=== PATIENT | male | born 1950 | race Caucasian/White ===

== ENCOUNTER → 2018-04-06 08:50 | Outpatient (REF) | payer BC, SELFPAY ==
[2018-04-06 09:10] LABS: C-Reactive Protein Quant < 0.5 mg/dL (<1.0)
[2018-04-06 09:18] LABS: Erythrocyte Sedimentation Rate 4 MM/HR (0-15)
== END ==
LOC: LAB 08:50
PROVIDERS: Visit Provider Internal Medicine Rheumatology
DX: M05.79 Rheumatoid arthritis with rheumatoid factor of multiple sites without organ or systems involvement (principal)
CPT/HCPCS: 85651; 86140

== ENCOUNTER → 2018-05-23 16:34 | Outpatient (CLI) | payer BC, SELFPAY ==
[2018-05-23 17:08] LABS: Influenza A and B by PCR Rapid Negative (Negative)
== END ==
PROVIDERS: Visit Provider Physician Assistant
DX: R68.89 Other general symptoms and signs (principal)
CPT/HCPCS: 87400

== ENCOUNTER → 2018-06-29 09:23 | Outpatient (CLI) | payer BC, SELFPAY ==
--- NOTE | 2018-06-29 | DI.MRI.S_ITS ---
PROCEDURE: MR BRAIN (IAC) WWO CON INDICATIONS: DIZZINESS TECHNIQUE: Noncontrast sagittal T1 spin echo, axial FLAIR, axial gradient echo, axial diffusion and ADC through the brain. Axial thin-slice 3D CISS, coronal TruFISP, axial T1 spin echo with fat saturation through the internal auditory canals. After the administration of contrast, thin slice axial and coronal T1 spin echo with fat saturation through the internal auditory canals, and axial T1 spin echo with fat saturation through the brain. COMPARISON: None. FINDINGS: Image quality: Excellent. Cerebellopontine angles: No cerebellopontine angle masses. Inner ear structures appear normally formed. No suspicious enhancement in the internal auditory canal or along the course of the 7th cranial nerve. CSF spaces: Ventricles are normal in size and shape. No extra-axial fluid collections. Basal cisterns are patent. Brain: No intracranial bleeds or mass effects. Clark-white matter interface is intact. No abnormal intracranial enhancement. Scattered foci of T2 hyperintensity can be seen within the periventricular and the deep white matter. Brain parenchymal volume loss is noted. Diffusion weighted images demonstrate no acute ischemic insults. Brainstem appears normal. Normal intravascular flow voids are present. Skull and face: Calvarial marrow signal is normal. Orbits appear normal. Sinuses: Sinuses and mastoids are clear. IMPRESSION: No significant abnormality is seen. Specifically, no masses or abnormal enhancement are seen within the cerebellopontine angle cisterns or within the internal auditory canals. Dictated by: Star Alvarez M.D. on 06/29/2018 at 9:22 Approved by: Star Alvarez M.D. on 06/29/2018 at 9:23
== END ==
PROVIDERS: Visit Provider Otolaryngology Facial Plastic Surgery
DX: R42 Dizziness and giddiness (principal)
CPT/HCPCS: 70553

== ENCOUNTER → 2019-07-31 10:54 | Outpatient (CLI) | payer BC, SELFPAY ==
[2019-07-31 12:08] LABS: Cholesterol 190 mg/dL (140-199); HDL Cholesterol 50 mg/dL (40-60); LDL Cholesterol Calculated 105 mg/dL (<100); Triglycerides 175 mg/dL (35-150)
== END ==
PROVIDERS: PCP Internal Medicine; Referring Provider Internal Medicine; Visit Provider Internal Medicine
DX: E78.5 Hyperlipidemia, unspecified (principal)
CPT/HCPCS: 36415; 80061

== ENCOUNTER → 2019-08-20 10:53 | Outpatient (CLI) | payer MEDICARE, BC, SELFPAY ==
[2019-08-21 12:08] LABS: SARS CoV19 IgG Negative (Negative)
== END ==
PROVIDERS: PCP Internal Medicine; Referring Provider Internal Medicine; Visit Provider Internal Medicine
DX: Z03.818 Encounter for observation for suspected exposure to other biological agents ruled out (principal)
CPT/HCPCS: 36415; 86769

== ENCOUNTER → 2020-04-04 07:34 | Outpatient (CLI) | payer MEDICARE, OTHER, SELFPAY ==
[2020-04-04] MEDS: COVID-19 VACC #1, MRNA(MOD) 100 MCG/0.5 ML VIAL IM (07:46)
== END ==
PROVIDERS: PCP Internal Medicine; Visit Provider Internal Medicine
DX: Z23 Encounter for immunization (principal)
CPT/HCPCS: 0011A; 91301

== ENCOUNTER → 2020-05-02 07:35 | Outpatient (CLI) | payer MEDICARE, OTHER, SELFPAY ==
[2020-05-02] MEDS: COVID-19 VACC #2, MRNA(MOD) 100 MCG/0.5 ML VIAL IM (07:40)
== END ==
PROVIDERS: PCP Internal Medicine; Visit Provider Internal Medicine
DX: Z23 Encounter for immunization (principal)
CPT/HCPCS: 0012A; 91301

== ENCOUNTER → 2020-05-08 09:04 | Outpatient (CLI) | payer MEDICARE, OTHER, SELFPAY ==
[2020-05-08 10:07] LABS: Add Manual Diff / Slide Review NO; Basophils Absolute Auto 0 /uL (0-100); Eosinophils Absolute Auto 0 /uL (0-450); Hematocrit 44.4 % (41-53); Hemoglobin 15.1 g/dL (13.5-17.5); Lymphocytes Absolute Auto 900 /uL (1100-4500); Lymphocytes Percent Auto 5.6 % (25-40); Mean Corpuscular HGB Conc 33.9 % (30-36); Mean Corpuscular Hemoglobin 32.4 PG (26-34); Mean Corpuscular Volume 95.4 fL (80-100); Monocytes Absolute Auto 500 /uL (0-900); Monocytes Percent Auto 3.4 % (3-14); Neutrophils Absolute Auto 14700 /uL (1500-7000); Platelet Count 168 X10^3/uL (150-400); Red Blood Cell Count 4.65 X10^6/uL (4.5-5.9); Red Cell Distribution Width 16.1 % (11.6-14.8); White Blood Cell Count 16.2 X10^3/uL (4.5-11.0)
[2020-05-08 10:17] LABS: Alanine Aminotransferase 39 IU/L (<50); Albumin 4.1 g/dL (3.5-5.0); Albumin Globulin Ratio 1.4 (1.0-2.8); Alkaline Phosphatase 61 U/L (38-126); Aspartate Aminotransferase 33 IU/L (17-59); BUN Creatinine Ratio 31.2 (6-22); Bilirubin Total 0.6 mg/dL (0.2-1.3); Blood Urea Nitrogen 29 mg/dL (9-20); Calcium 10.2 mg/dL (8.4-10.2); Carbon Dioxide 27 mmol/L (22-32); Chloride 104 mmol/L (98-107); Estimated Glomerular Filt Rate > 60.0 mL/min (>60); Glucose 104 mg/dL (80-110); HEMOLYSIS 16 (0-50); Potassium 4.4 mmol/L (3.4-5.1); Sodium 135 mmol/L (137-145); Total Protein 7.1 g/dL (6.3-8.2)
== END ==
PROVIDERS: PCP Internal Medicine; Referring Provider Internal Medicine Rheumatology; Visit Provider Internal Medicine Rheumatology
DX: M05.79 Rheumatoid arthritis with rheumatoid factor of multiple sites without organ or systems involvement (principal); Z79.899 Other long term (current) drug therapy
CPT/HCPCS: 36415; 80053; 85025

== ENCOUNTER → 2020-09-04 13:07 | Outpatient (CLI) | payer MEDICARE, OTHER, SELFPAY ==
[2020-09-04 13:35] LABS: Add Manual Diff / Slide Review NO; Basophils Absolute Auto 0 /uL (0-100); Basophils Percent Auto 0.9 % (0-2); Eosinophils Absolute Auto 100 /uL (0-450); Eosinophils Percent Auto 2.7 % (2-4); Hematocrit 43.1 % (41-53); Hemoglobin 14.8 g/dL (13.5-17.5); Lymphocytes Absolute Auto 2100 /uL (1100-4500); Lymphocytes Percent Auto 41.4 % (25-40); Mean Corpuscular HGB Conc 34.4 % (30-36); Mean Corpuscular Hemoglobin 33.1 PG (26-34); Mean Corpuscular Volume 96.2 fL (80-100); Monocytes Absolute Auto 300 /uL (0-900); Monocytes Percent Auto 5.1 % (3-14); Neutrophils Absolute Auto 2500 /uL (1500-7000); Neutrophils Percent Auto 49.9 % (50-75); Platelet Count 176 X10^3/uL (150-400); Red Blood Cell Count 4.47 X10^6/uL (4.5-5.9); Red Cell Distribution Width 14.1 % (11.6-14.8)
[2020-09-04 13:45] LABS: Alanine Aminotransferase 56 IU/L (<50); Albumin Globulin Ratio 1.4 (1.0-2.8); Alkaline Phosphatase 58 U/L (38-126); Aspartate Aminotransferase 52 IU/L (17-59); BUN Creatinine Ratio 21.7 (6-22); Bilirubin Total 0.8 mg/dL (0.2-1.3); Blood Urea Nitrogen 18 mg/dL (9-20); Calcium 10.3 mg/dL (8.4-10.2); Carbon Dioxide 26 mmol/L (22-32); Chloride 106 mmol/L (98-107); Estimated Glomerular Filt Rate > 60.0 mL/min (>60); Globulin 2.8 g/dL (1.7-4.1); Glucose 109 mg/dL (80-110); HEMOLYSIS 17 (0-50); Potassium 4.3 mmol/L (3.4-5.1); Sodium 138 mmol/L (137-145); Total Protein 6.8 g/dL (6.3-8.2)
== END ==
PROVIDERS: PCP Internal Medicine; Referring Provider Internal Medicine Rheumatology; Visit Provider Internal Medicine Rheumatology
DX: M05.79 Rheumatoid arthritis with rheumatoid factor of multiple sites without organ or systems involvement (principal); Z79.899 Other long term (current) drug therapy
CPT/HCPCS: 36415; 80053; 85025

== ENCOUNTER → 2020-12-12 09:13 | Outpatient (CLI) | payer MEDICARE, OTHER, SELFPAY ==
[2020-12-12 10:17] LABS: Add Manual Diff / Slide Review NO; Basophils Absolute Auto 0 /uL (0-100); Basophils Percent Auto 0.8 % (0-2); Eosinophils Absolute Auto 200 /uL (0-450); Eosinophils Percent Auto 3.3 % (2-4); Hematocrit 45.5 % (41-53); Hemoglobin 15.2 g/dL (13.5-17.5); Lymphocytes Absolute Auto 1800 /uL (1100-4500); Lymphocytes Percent Auto 34.9 % (25-40); Mean Corpuscular HGB Conc 33.5 % (30-36); Mean Corpuscular Hemoglobin 32.4 PG (26-34); Mean Corpuscular Volume 96.8 fL (80-100); Monocytes Absolute Auto 200 /uL (0-900); Monocytes Percent Auto 3.9 % (3-14); Neutrophils Absolute Auto 2900 /uL (1500-7000); Neutrophils Percent Auto 57.1 % (50-75); Platelet Count 162 X10^3/uL (150-400); Red Cell Distribution Width 14.6 % (11.6-14.8); White Blood Cell Count 5.1 X10^3/uL (4.5-11.0)
[2020-12-12 10:31] LABS: Alanine Aminotransferase 36 IU/L (<50); Albumin 3.9 g/dL (3.5-5.0); Albumin Globulin Ratio 1.6 (1.0-2.8); Alkaline Phosphatase 62 U/L (38-126); Aspartate Aminotransferase 33 IU/L (17-59); BUN Creatinine Ratio 19.3 (6-22); Bilirubin Total 0.6 mg/dL (0.2-1.3); Blood Urea Nitrogen 17 mg/dL (9-20); Carbon Dioxide 30 mmol/L (22-32); Chloride 106 mmol/L (98-107); Estimated Glomerular Filt Rate > 60.0 mL/min (>60); Globulin 2.5 g/dL (1.7-4.1); Glucose 174 mg/dL (80-110); HEMOLYSIS < 15 (0-50); Potassium 4.3 mmol/L (3.4-5.1); Sodium 141 mmol/L (137-145); Total Protein 6.4 g/dL (6.3-8.2)
== END ==
PROVIDERS: PCP Internal Medicine; Referring Provider Internal Medicine Rheumatology; Visit Provider Internal Medicine Rheumatology
DX: M05.79 Rheumatoid arthritis with rheumatoid factor of multiple sites without organ or systems involvement (principal); Z79.899 Other long term (current) drug therapy
CPT/HCPCS: 36415; 80053; 85025

== ENCOUNTER → 2021-02-25 09:13 | Outpatient (CLI) | payer MEDICARE, OTHER, SELFPAY ==
[2021-02-25 09:42] LABS: COVID19 -Nasal RAPID Negative (Negative)
== END ==
PROVIDERS: PCP Internal Medicine; Visit Provider Physician Assistant
DX: Z20.822 Contact with and (suspected) exposure to COVID-19 (principal)
CPT/HCPCS: 87635

== ENCOUNTER → 2021-04-23 07:14 | Outpatient (CLI) | payer MEDICARE, OTHER, SELFPAY ==
[2021-04-23 07:52] LABS: Add Manual Diff / Slide Review NO; Basophils Absolute Auto 0 /uL (0-100); Basophils Percent Auto 0.6 % (0-2); Eosinophils Absolute Auto 200 /uL (0-450); Eosinophils Percent Auto 4.3 % (2-4); Hematocrit 41.7 % (41-53); Hemoglobin 14.2 g/dL (13.5-17.5); Lymphocytes Absolute Auto 1500 /uL (1100-4500); Lymphocytes Percent Auto 31.7 % (25-40); Mean Corpuscular Hemoglobin 31.8 PG (26-34); Mean Corpuscular Volume 93.4 fL (80-100); Monocytes Absolute Auto 200 /uL (0-900); Monocytes Percent Auto 4.3 % (3-14); Neutrophils Absolute Auto 2900 /uL (1500-7000); Neutrophils Percent Auto 59.1 % (50-75); Platelet Count 126 X10^3/uL (150-400); Red Blood Cell Count 4.47 X10^6/uL (4.5-5.9); Red Cell Distribution Width 14.9 % (11.6-14.8); White Blood Cell Count 4.8 X10^3/uL (4.5-11.0)
[2021-04-23 08:05] LABS: Alanine Aminotransferase 69 IU/L (<50); Albumin 3.8 g/dL (3.5-5.0); Albumin Globulin Ratio 1.5 (1.0-2.8); Alkaline Phosphatase 59 U/L (38-126); Aspartate Aminotransferase 63 IU/L (17-59); BUN Creatinine Ratio 21.2 (6-22); Blood Urea Nitrogen 18 mg/dL (9-20); Carbon Dioxide 29 mmol/L (22-32); Chloride 107 mmol/L (98-107); Estimated Glomerular Filt Rate > 60.0 mL/min (>60); Globulin 2.6 g/dL (1.7-4.1); Glucose 101 mg/dL (80-110); HEMOLYSIS < 15 (0-50); Potassium 4.4 mmol/L (3.4-5.1); Sodium 138 mmol/L (137-145); Total Protein 6.4 g/dL (6.3-8.2)
== END ==
PROVIDERS: PCP Internal Medicine; Referring Provider Internal Medicine Rheumatology; Visit Provider Internal Medicine Rheumatology
DX: Z79.899 Other long term (current) drug therapy (principal); M05.79 Rheumatoid arthritis with rheumatoid factor of multiple sites without organ or systems involvement
CPT/HCPCS: 36415; 80053; 85025

== ENCOUNTER → 2021-05-20 15:15 | Outpatient (CLI) | payer MEDICARE, OTHER, SELFPAY ==
[2021-05-20 16:08] LABS: Alanine Aminotransferase 43 IU/L (<50); Albumin 3.8 g/dL (3.5-5.0); Albumin Globulin Ratio 1.3 (1.0-2.8); Alkaline Phosphatase 54 U/L (38-126); Aspartate Aminotransferase 44 IU/L (17-59); BUN Creatinine Ratio 18.6 (6-22); Bilirubin Total 0.6 mg/dL (0.2-1.3); Blood Urea Nitrogen 18 mg/dL (9-20); Calcium 9.8 mg/dL (8.4-10.2); Carbon Dioxide 33 mmol/L (22-32); Chloride 104 mmol/L (98-107); Estimated Glomerular Filt Rate > 60.0 mL/min (>60); Globulin 2.9 g/dL (1.7-4.1); Glucose 120 mg/dL (80-110); HEMOLYSIS < 15 (0-50); Potassium 4.6 mmol/L (3.4-5.1); Sodium 136 mmol/L (137-145); Total Protein 6.7 g/dL (6.3-8.2)
== END ==
PROVIDERS: PCP Internal Medicine; Referring Provider Internal Medicine Rheumatology; Visit Provider Internal Medicine Rheumatology
DX: M05.79 Rheumatoid arthritis with rheumatoid factor of multiple sites without organ or systems involvement (principal); Z79.899 Other long term (current) drug therapy; R94.5 Abnormal results of liver function studies
CPT/HCPCS: 36415; 80053

== ENCOUNTER → 2021-07-15 13:35 | Outpatient (CLI) | payer MEDICARE, OTHER, SELFPAY ==
--- NOTE | 2021-07-15 | DI.RAD.S_ITS ---
PROCEDURE: FL SHOULDER INJECTION MR/CT RT INDICATIONS: Rule out rotator cuff tear COMPARISON: [facility], MR, MR SHOULDER RT W CON, 07/15/2021, 14:16. TECHNIQUE: The indications, alternatives, benefits, risks, and complications of the procedure were explained to the patient. Written informed consent was obtained and placed in the chart. The shoulder was examined fluoroscopically and a site for needle placement chosen for entry into the glenohumeral joint from an anterior approach. The skin was prepped and draped in a sterile fashion, and 1% lidocaine infiltrated from skin down to joint capsule. A spinal needle was inserted into the glenohumeral joint, and a small amount of iodinated contrast media injected to confirm intra-articular placement of the needle tip. This was followed by approximately 12 mL dilute solution of a gadolinium containing MR contrast agent. The needle was removed and a dressing was applied. The patient was given postprocedural instructions and sent to the MR suite for MR imaging. FINDINGS: A single fluoroscopic spot image demonstrates intra-articular location of injected iodinated contrast. IMPRESSION: Successful fluoroscopically guided administration of dilute Gadolinium solution into the shoulder joint for MR arthrogram. Dictated by: Raven Bryant M.D. on 07/15/2021 at 17:17 Approved by: Raven Bryant M.D. on 07/15/2021 at 17:17
--- NOTE | 2021-07-15 | DI.MRI.S_ITS ---
PROCEDURE: MR SHOULDER RT W CON INDICATIONS: Rule out rotator cuff tear TECHNIQUE: After the administration of 12 mL of dilute intra-articular Gadolinium contrast, oblique coronal T1 and T2 spin echo with fat saturation, oblique sagittal T1 spin echo with and without fat saturation, oblique sagittal T2 fast spin echo with fat saturation, axial T1 spin echo with fat saturation through the shoulder. COMPARISON: [facility] [place], CR, XR SHOULDER 2+ VIEWS RIGHT, 05/01/2021, 11:37. FINDINGS: Image quality: Excellent. Rotator cuff: Advanced supraspinatus tendinopathy with full-thickness tear measuring approximately 1.3 x 1.5 cm. Moderate infraspinatus tendinopathy with small, partial articular surface tear. Mild subscapularis tendinopathy with interstitial tear. No significant muscle atrophy. Bones and bursae: No bone marrow contusions or fractures. Minimal subchondral edema, which may reflect fibrocystic change. Mild acromioclavicular joint degeneration. No os acromiale. Capsule and soft tissues: Faint T2 hyperintense signal with thin contrast extension into the superior labrum (6-10), concerning for tear. The long head of the biceps tendon demonstrates normal location and morphology. The coracohumeral ligament is of normal thickness. No intra-articular bodies. IMPRESSION: 1. Full-thickness supraspinatus tear detailed above. 2. Infraspinatus tendinopathy with partial, articular surface tear. 3. Thin superior labral tear. 4. Mild AC joint degeneration. 5. Mild supraspinatus tendinopathy with interstitial tear. Dictated by: Oswaldo Osullivan M.D. on 07/15/2021 at 14:58 Approved by: Oswaldo Osullivan M.D. on 07/15/2021 at 15:06
== END ==
PROVIDERS: PCP Internal Medicine; Referring Provider Orthopaedic Surgery; Visit Provider Orthopaedic Surgery
DX: M75.121 Complete rotator cuff tear or rupture of right shoulder, not specified as traumatic (principal); S43.491A Other sprain of right shoulder joint, initial encounter; M19.011 Primary osteoarthritis, right shoulder; M25.511 Pain in right shoulder
CPT/HCPCS: 23350; 73222; 77002

== ENCOUNTER 2021-09-22 17:59 | Emergency (ER) | payer MEDICARE, OTHER, SELFPAY ==
[2021-09-22 18:20] VITALS: BP 141/69; PULSE 83; RESP 20; TEMP 36.3; O2SAT 99; BMI 31.5
--- NOTE | 2021-09-22 18:33 | DI.RAD.S_ITS ---
PROCEDURE: XR CHEST 1V INDICATIONS: SOB TECHNIQUE: One view of the chest was acquired. COMPARISON: None. FINDINGS: Surgical changes and devices: None. Lungs and pleura: Lungs are clear. No pleural effusions or pneumothorax. Mediastinum: Mediastinal contours appear normal. Heart size is normal. Atherosclerotic vascular calcification noted in the aortic arch. Bones and chest wall: No suspicious bony lesions. Overlying soft tissues appear unremarkable. IMPRESSION: No acute cardiopulmonary findings Approved by: Jose Tapia M.D. on 09/22/2021 at 18:27
--- NOTE | 2021-09-22 18:33 | DI.US.S_ITS ---
PROCEDURE: US PERIPH VENOUS LOW EXTREM LT INDICATIONS: PAIN TECHNIQUE: Real-time imaging, as well as color and pulse Doppler interrogation, were performed of the lower extremity deep veins from the inguinal ligament to the popliteal fossa. COMPARISON: None. FINDINGS: The filling defects within the mid superficial femoral vein extending into the popliteal vein which appears occlusive. The proximal superficial femoral vein and the common femoral vein appear patent. IMPRESSION: 1. Occlusive deep venous thrombosis involving the mid superficial femoral vein to the popliteal vein. Dictated by: Naman Arellano M.D. on 09/22/2021 at 20:49 Approved by: Naman Arellano M.D. on 09/22/2021 at 20:51
[2021-09-22 19:30] LABS: Add Manual Diff / Slide Review NO; Basophils Absolute Auto 100 /uL (0-100); Basophils Percent Auto 1.2 % (0-2); Eosinophils Absolute Auto 600 /uL (0-450); Eosinophils Percent Auto 9.5 % (2-4); Hematocrit 39.5 % (41-53); Hemoglobin 13.6 g/dL (13.5-17.5); Lymphocytes Absolute Auto 1400 /uL (1100-4500); Lymphocytes Percent Auto 24.4 % (25-40); Mean Corpuscular HGB Conc 34.5 % (30-36); Mean Corpuscular Volume 95.7 fL (80-100); Monocytes Absolute Auto 700 /uL (0-900); Monocytes Percent Auto 12.6 % (3-14); Neutrophils Absolute Auto 3100 /uL (1500-7000); Neutrophils Percent Auto 52.3 % (50-75); Platelet Count 130 X10^3/uL (150-400); Red Blood Cell Count 4.13 X10^6/uL (4.5-5.9); Red Cell Distribution Width 15.2 % (11.6-14.8); White Blood Cell Count 5.9 X10^3/uL (4.5-11.0)
--- NOTE | 2021-09-22 19:39 | DI.CT.S_ITS ---
PROCEDURE: CT ANGIO CHEST PE PROTOCOL INDICATIONS: DVT, shortness of breath TECHNIQUE: After the administration of intravenous contrast, 2 mm thick sections acquired from the pulmonary apices to the posterior costophrenic angles. 3-dimensional maximum intensity projection (MIP) coronal and sagittal reformats were then acquired through the thorax. For radiation dose reduction, the following was used: automated exposure control, adjustment of mA and/or kV according to patient size. COMPARISON: [facility], CT, CT KUB, 05/04/2019, 18:03. [facility], US, US PERIPH VENOUS LOW EXTREM LT, 09/22/2021, 19:27. FINDINGS: Image quality: Excellent. Pulmonary arteries: There are extensive bilateral filling defects involving the right and left lobar pulmonary arteries extending into segmental and subsegmental branches within all lobes. The main pulmonary artery is mildly enlarged, measuring up to 3.2 cm. There is flattening the interventricular septum with suggestion of minimal leftward deviation. Lower Neck: No lymphadenopathy by size criteria. Thyroid: Visualized thyroid demonstrates no discrete nodules. Axillae: No lymphadenopathy by size criteria. Chest Wall: Unremarkable. Bones: Visualized osseous structures demonstrate no suspicious lesions. Lungs and Airways: No acute consolidation. There is mild atelectasis bilaterally. Mild linear peripheral opacities in the right upper and middle lobes likely represent scarring or atelectasis and less likely early infarcts. The trachea and central airways are patent. Pleura: No pneumothorax or pleural effusions. Heart: Heart size is normal. No pericardial effusion. Thoracic Vessels: The aorta appears normal in size. Mediastinum and Georgina: No lymphadenopathy by size criteria. Esophagus: No wall thickening. No hiatal hernia. Abdomen: Visualized upper abdomen demonstrates a small hypodense focus in the right hepatic lobe which is too small to characterize appears unchanged compared to the prior study and likely represent cysts. Visualized kidneys demonstrate 2 nonobstructing stones on the left measuring up to 0.6 cm and 2 small on the right measuring to 0.4 cm. IMPRESSION: 1. Extensive bilateral pulmonary embolism involving the right and left lobar pulmonary arteries with extension into segmental and branches into all lobes. 2. Mild enlargement of the main pulmonary artery and minimal leftward deviation of the interventricular septum are suggestive of developing right heart strain. Findings discussed with Dr. Rahman on 01/23/2022 at 9:06 p.m. 3. Bilateral nephrolithiasis in the visualized kidneys. 4. Linear opacities peripherally in the right lung likely represent scarring or atelectasis. Early developing pulmonary infarcts are less likely. Dictated by: Naman Arellano M.D. on 09/22/2021 at 20:59 Approved by: Naman Arellano M.D. on 09/22/2021 at 21:14
--- NOTE | 2021-09-22 19:41 | ED_ITS ---
HPI - Extremity Problem <Leslie Thompson [facility] - Last Filed: 09/23/21 18:53> General Chief complaint: Extremity Problem,Nontraumatic Stated complaint: lt.leg swelling Time Seen by Provider: 09/22/21 18:32 Source: patient Mode of arrival: Ambulatory History of Present Illness HPI Narrative: This is a 70-year-old male with history of right shoulder surgery two weeks ago, arthritis, ILIANA on CPAP at night who presents the emergency department complaining of left leg swelling over the last three days, new shortness of breath with exertion. He denies any recent fever, endorses tightness behind his left knee, states that his surgery was more complicated than anticipated and he was under anesthesia for longer than planned. He takes meloxicam for his arthritis at baseline, is not on any anticoagulants, does not have any history of diabetes, cardiac disease, asthma or COPD. He is not a smoker. He denies any abdominal pain, nausea vomiting, constipation or diarrhea. He is not been taking any pain medication for a few days. States that the skin is taut behind his knee and he has new swelling which has gradually been getting worse in his left lower leg without any redness, significant tenderness, trauma, or wound. Patient reports that he takes aspirin 81 daily, has been ambulating a lot more than usual for exercise. Related Data Home Medications Medication Instructions Recorded Confirmed aspirin 81 mg tablet,delayed 81 mg PO DAILY 01/20/18 03/17/21 release (Adult Low Dose Aspirin) duloxetine [Cymbalta] PO 01/20/18 03/17/21 meloxicam [Mobic] PO 01/20/18 03/17/21 omega-3 fatty acids [Fish Oil PO 01/20/18 03/17/21 Concentrate] Respironics Dreamstation CPAP #1 ea 10/25/18 03/17/21 rosuvastatin 10 mg tablet 10 mg PO DAILY 03/17/21 03/17/21 Previous Rx's Medication Instructions Recorded meclizine 25 mg tablet 25 mg PO BID-TID PRN dizziness #30 01/20/18 tabs ondansetron 4 mg disintegrating 4 mg PO Q6-8H PRN nausea and 05/23/18 tablet vomiting #30 tabs apixaban 5 mg tablet (Eliquis) 5 mg PO BID #70 tabs 09/22/21 Allergies Allergy/AdvReac Type Severity Reaction Status Date / Time No Known Drug Allergies Allergy Verified 09/22/21 18:24 Review of Systems <RICHARD Kate - Last Filed: 09/23/21 18:53> Review of Systems Narrative: General: denies fever, chills Head/Neck: denies headache, neck pain Eyes: denies visual changes, eye pain Cardio: denies chest pain, palpitations Respiratory: Endorses exertional shortness of breath, denies cough GI: denies abdominal pain, nausea, vomiting, or diarrhea : denies dysuria, hematuria or flank pain MSK: Endorses new left lower leg swelling, denies muscle weakness or sensation changes, endorses history of arthritis Skin: denies rash, itching or wound Neuro: denies numbness, tingling, dizziness Patient History <RICHARD Kate - Last Filed: 09/23/21 18:53> Medical History Anxiety Depression Hypertension Obesity (BMI 30-39.9) Family History Father Heart attack Social History Smoking Status: Never smoker Smoking Status: Never smoker Exam <RICHARD Kate - Last Filed: 09/23/21 18:53> Narrative Exam Narrative: Independently reviewed vitals signs and nursing notes. General: cooperative, comfortable, in no acute distress, well groomed Head: atraumatic, symmetrical facial expressions Neck: supple Eyes: equal round and reactive, EOMI, conjunctiva normal Nose: nares patent, no rhinorrhea Mouth/Throat: moist mucus membranes Cardiovascular: regular rate and rhythm, no peripheral edema, warm extremities Respiratory: normal effort, able to speak in complete sentences, no audible wheezing, stridor, or rales. No retractions or tachypnea. GI: abdomen soft, nontender to palpation, nondistended, no masses, no exquisite tenderness with exam, without guarding or rebound. MSK: moves all extremities, neurovascularly intact, no weakness, normal tone, left lower extremity is obviously edematous, without erythema or any discoloration. Palpable edema or superior to the patella with a fluid wave of the joint, no open wound, no significant tenderness, palpable edema posterior to the left Skin: brisk capillary refill, no rash, no erythema Neuro: normal speech and cognition, A&O x3 Psych: mental status is grossly normal, congruent mood, normal affect, pleasant and cooperative Initial Vital Signs Initial Vital Signs: Vital Signs Temperature 97.3 F L 09/22/21 18:20 Pulse Rate 83 09/22/21 18:20 Respiratory Rate 20 09/22/21 18:20 Blood Pressure 141/69 H 09/22/21 18:20 Pulse Oximetry 99 09/22/21 18:20 Oxygen Delivery Method 09/22/21 18:20 <Antoni Rahman DO - Last Filed: 09/23/21 01:45> Initial Vital Signs Initial Vital Signs: Vital Signs Temperature 97.3 F L 09/22/21 18:20 Pulse Rate 83 09/22/21 18:20 Respiratory Rate 20 09/22/21 18:20 Blood Pressure 141/69 H 09/22/21 18:20 Pulse Oximetry 99 09/22/21 18:20 Oxygen Delivery Method 09/22/21 18:20 Scores <JOAN KateP - Last Filed: 09/23/21 18:53> Wells' Criteria for PE Clinical signs and symptoms of DVT: Yes PE is #1 Dx or equally likely: Yes Heart rate > 100: No Immobilization at least 3 days or surg in previous 4 weeks: Yes History of PE or DVT: No Hemoptysis: No Malignancy w/Treatment within 6 months or palliative: No Wells' PE Score total: 7.5 Wells' Criteria for DVT Active Cancer (Treatment within 6 months): No Bedridden recently >3 days or major surgery within 4 weeks: Yes Calf Swelling >3cm compared to other leg: Yes Collateral (nonvericose) superficial veins present: No Entire leg swollen: Yes Localized tenderness along the deep vein system: No Pitting edema, confined to symtomatic leg: Yes Paralysis, paresis, or recent plaster immobilization of ext: No Previously documented DVT: No Alternative dx to DVT as likely or more likely: No WellsBernice criteria for DVT: 4 <Antoni Rahman DO - Last Filed: 09/23/21 01:45> Wells' Criteria for PE Wells' PE Score total: 7.5 Wells' Criteria for DVT Wells' criteria for DVT: 4 Course <RICHARD Kate - Last Filed: 09/23/21 18:53> Orders Ordered: Discontinued Medications Apixaban (Apixaban 5 Mg Tablet) 10 mg PO NOW ONE Stop: 09/22/21 22:35 Last Admin: 09/22/21 22:45 Dose: 10 mg Documented By: HNG Vital Signs Vital signs: Vital Signs - 8 hr 09/22/21 18:20 09/22/21 21:41 09/22/21 23:05 Temperature 97.3 F L Pulse Rate 83 90 88 Respiratory Rate 20 18 18 Blood Pressure 141/69 H 138/68 Pulse Oximetry 99 98 99 Oxygen Delivery Method Room Air Room Air <Antoni Rahman DO - Last Filed: 09/23/21 01:45> Orders Ordered: Discontinued Medications Apixaban (Apixaban 5 Mg Tablet) 10 mg PO NOW ONE Stop: 09/22/21 22:35 Last Admin: 09/22/21 22:45 Dose: 10 mg Documented By: HNG Vital Signs Vital signs: Vital Signs - 8 hr 09/22/21 18:20 09/22/21 21:41 09/22/21 23:05 Temperature 97.3 F L Pulse Rate 83 90 88 Respiratory Rate 20 18 18 Blood Pressure 141/69 H 138/68 Pulse Oximetry 99 98 99 Oxygen Delivery Method Room Air Room Air MDM - Extremity (Nontraumatic) <RICHARD Kate - Last Filed: 09/23/21 18:53> Lab Data Result diagrams: 09/22/21 19:20 09/22/21 19:20 Labs: Lab Results 09/22/21 09/22/21 09/22/21 Range/Units 19:20 19:20 19:20 WBC 5.9 (4.5-11.0) X10^3/uL RBC 4.13 L (4.5-5.9) X10^6/uL Hgb 13.6 (13.5-17.5) g/dL Hct 39.5 L (41-53) % MCV 95.7 (80-100) fL MCH 33.0 (26-34) PG MCHC 34.5 (30-36) % RDW 15.2 H (11.6-14.8) % Plt Count 130 L (150-400) X10^3/uL Neut % (Auto) 52.3 (50-75) % Lymph % (Auto) 24.4 L (25-40) % [place] % (Auto) 12.6 (3-14) % Eos % (Auto) 9.5 H (2-4) % Baso % (Auto) 1.2 (0-2) % Neut # (Auto) 3100 (4700-1879) /uL Lymph # (Auto) 1400 (5947-7776) /uL [place] # (Auto) 700 (0-900) /uL Eos # (Auto) 600 H (0-450) /uL Baso # (Auto) 100 (0-100) /uL PT (10.1-12.7) SECONDS INR (0.9-1.3) D-Dimer 4696 H (<230) ng/mL Sodium 137 (137-145) mmol/L Potassium 4.3 (3.4-5.1) mmol/L Chloride 103 (98-107) mmol/L Carbon Dioxide 28 (22-32) mmol/L BUN 21 H (9-20) mg/dL Creatinine 1.05 (0.66-1.25) mg/dL Estimated GFR > 60 (>60) mL/min BUN/Creatinine Ratio 20.0 (6-22) Glucose 98 (80-110) mg/dL Calcium 9.8 (8.4-10.2) mg/dL Total Bilirubin 0.8 (0.2-1.3) mg/dL AST 65 H (17-59) IU/L ALT 48 (<50) IU/L Alkaline Phosphatase 71 (38-126) U/L Total Creatine Kinase (55-170) U/L CK-MB (CK-2) (<2.37) ng/mL CK-MB (CK-2) Rel Index (1.5-5.0) % Troponin I (0.01-0.034) ng/mL NT-Pro-B Natriuret Pep (<125) pg/mL Total Protein 6.6 (6.3-8.2) g/dL Albumin 3.7 (3.5-5.0) g/dL Globulin 2.9 (1.7-4.1) g/dL Albumin/Globulin Ratio 1.3 (1.0-2.8) Lipase (23-300) U/L SARS-CoV-2 (PCR) (Negative) 09/22/21 09/22/21 09/22/21 Range/Units 19:20 19:20 19:44 WBC (4.5-11.0) X10^3/uL RBC (4.5-5.9) X10^6/uL Hgb (13.5-17.5) g/dL Hct (41-53) % MCV (80-100) fL MCH (26-34) PG MCHC (30-36) % RDW (11.6-14.8) % Plt Count (150-400) X10^3/uL Neut % (Auto) (50-75) % Lymph % (Auto) (25-40) % [place] % (Auto) (3-14) % Eos % (Auto) (2-4) % Baso % (Auto) (0-2) % Neut # (Auto) (1669-1935) /uL Lymph # (Auto) (6891-9865) /uL [place] # (Auto) (0-900) /uL Eos # (Auto) (0-450) /uL Baso # (Auto) (0-100) /uL PT 15.9 H (10.1-12.7) SECONDS INR 1.4 H (0.9-1.3) D-Dimer (<230) ng/mL Sodium (137-145) mmol/L Potassium (3.4-5.1) mmol/L Chloride (98-107) mmol/L Carbon Dioxide (22-32) mmol/L BUN (9-20) mg/dL Creatinine (0.66-1.25) mg/dL Estimated GFR (>60) mL/min BUN/Creatinine Ratio (6-22) Glucose (80-110) mg/dL Calcium (8.4-10.2) mg/dL Total Bilirubin (0.2-1.3) mg/dL AST (17-59) IU/L ALT (<50) IU/L Alkaline Phosphatase (38-126) U/L Total Creatine Kinase 136 (55-170) U/L CK-MB (CK-2) 3.30 H (<2.37) ng/mL CK-MB (CK-2) Rel Index 2.4 (1.5-5.0) % Troponin I < 0.012 (0.01-0.034) ng/mL NT-Pro-B Natriuret Pep 116 (<125) pg/mL Total Protein (6.3-8.2) g/dL Albumin (3.5-5.0) g/dL Globulin (1.7-4.1) g/dL Albumin/Globulin Ratio (1.0-2.8) Lipase 143 (23-300) U/L SARS-CoV-2 (PCR) Negative (Negative) Imaging Data US - DVT: Radiologist's Impression: PROCEDURE:? US PERIPH VENOUS LOW EXTREM LT ? INDICATIONS:? PAIN ? TECHNIQUE:? Real-time imaging, as well as color and pulse Doppler interrogation, were performed of the lower extremity deep veins from the inguinal ligament to the popliteal fossa.? ? COMPARISON:? None. ? FINDINGS:? ? The filling defects within the mid superficial femoral vein extending into the popliteal vein which appears occlusive.? The proximal superficial femoral vein and the common femoral vein appear patent. ? IMPRESSION:? ? 1.? Occlusive deep venous thrombosis involving the mid superficial femoral vein to the popliteal vein.? ? ? Dictated by: Naman Arellano M.D. on 09/22/2021 at 20:49 ? ? Approved by: Naman Arellano M.D. on 09/22/2021 at 20:51 ? ECG Data Interpretation: EKG independently reviewed by Dr. Rahman and reveals normal sinus rhythm at 78 bpm with regular axis and intervals. No STEMI, ST segment changes, arrhythmia, or acute ischemic changes. MDM Narrative Medical decision making narrative: This is a 70-year-old male with history of ILIANA, obesity, right shoulder surgery two weeks ago and is not on any anticoagulants who presents to the emergency department today for three days of left lower leg swelling and new shortness of breath with exertion. On exam, his left lower extremity is edematous without signs of cellulitis or infection. Ultrasound DVT of his left lower extremity shows Lab work does not show any leukocytosis, anemia, he does have thrombocytopenia with a platelet count of 130, this is consistent with his priors. His INR is 1.4, D-dimer is elevated at 4696, creatinine is 1.05 which is stable at his baseline, AST is mildly elevated at 65, this is consistent with priors, CK MB is elevated at 3.3 however CK-MB relative index is not elevated and his troponin is 0.012. BNP is not elevated at 116, lipase is 143. COVID PCR is negative. Ultrasound DVT of his left lower extremity shows occlusive DVT involving the mid superficial femoral vein to the popliteal vein. Chest CTA is ordered and is pending. Chest CTA shows extensive bilateral pulmonary embolism involving the right and left lobar pulmonary arteries with extension into the segmental branches into all lobes. Mild enlargement of the main pulmonary artery and minimal leftward deviation of the intraventricular septum is suggestive of developing right heart strain. Those findings were discussed with Dr. Rahman after sign out, his MDM is below.. Dr Rahman: I did receive turned over. I do review the patient's history and physical exam. He recently had shoulder surgery. He has no issues with regard to that today. Has had 3 days of left leg swelling and also dyspnea on exertion and shortness of breath. Today his left lower extremities positive for DVT. The CT scan of the chest also shows bilateral pulmonary emboli. Received a call from radiology who stated that there is some evidence of right heart strain however patient has negative troponin. Negative BNP. Not tachycardic. Not hypotensive. Ambulated without becoming hypoxic. I did discuss the case with Dr. Pierce with cardiology who stated that the patient is not currently a candidate for catheter directed thrombolysis. Given his stable vital signs and no need for oxygen will discharge patient home and start the patient on Eliquis. Was given the 1st dose here in the emergency department and a prescription was sent to the pharmacy of his choice. He was also instructed to contact his primary doctor for follow-up. He was given return precautions. He expressed understanding and agreement. <Antoni Rahman, DO - Last Filed: 09/23/21 01:45> Lab Data Labs: Lab Results 09/22/21 09/22/21 09/22/21 Range/Units 19:20 19:20 19:20 WBC 5.9 (4.5-11.0) X10^3/uL RBC 4.13 L (4.5-5.9) X10^6/uL Hgb 13.6 (13.5-17.5) g/dL Hct 39.5 L (41-53) % MCV 95.7 (80-100) fL MCH 33.0 (26-34) PG MCHC 34.5 (30-36) % RDW 15.2 H (11.6-14.8) % Plt Count 130 L (150-400) X10^3/uL Neut % (Auto) 52.3 (50-75) % Lymph % (Auto) 24.4 L (25-40) % [place] % (Auto) 12.6 (3-14) % Eos % (Auto) 9.5 H (2-4) % Baso % (Auto) 1.2 (0-2) % Neut # (Auto) 3100 (3781-8380) /uL Lymph # (Auto) 1400 (8814-5935) /uL [place] # (Auto) 700 (0-900) /uL Eos # (Auto) 600 H (0-450) /uL Baso # (Auto) 100 (0-100) /uL PT (10.1-12.7) SECONDS INR (0.9-1.3) D-Dimer 4696 H (<230) ng/mL Sodium 137 (137-145) mmol/L Potassium 4.3 (3.4-5.1) mmol/L Chloride 103 (98-107) mmol/L Carbon Dioxide 28 (22-32) mmol/L BUN 21 H (9-20) mg/dL Creatinine 1.05 (0.66-1.25) mg/dL Estimated GFR > 60 (>60) mL/min BUN/Creatinine Ratio 20.0 (6-22) Glucose 98 (80-110) mg/dL Calcium 9.8 (8.4-10.2) mg/dL Total Bilirubin 0.8 (0.2-1.3) mg/dL AST 65 H (17-59) IU/L ALT 48 (<50) IU/L Alkaline Phosphatase 71 (38-126) U/L Total Creatine Kinase (55-170) U/L CK-MB (CK-2) (<2.37) ng/mL CK-MB (CK-2) Rel Index (1.5-5.0) % Troponin I (0.01-0.034) ng/mL NT-Pro-B Natriuret Pep (<125) pg/mL Total Protein 6.6 (6.3-8.2) g/dL Albumin 3.7 (3.5-5.0) g/dL Globulin 2.9 (1.7-4.1) g/dL Albumin/Globulin Ratio 1.3 (1.0-2.8) Lipase (23-300) U/L SARS-CoV-2 (PCR) (Negative) 09/22/21 09/22/21 09/22/21 Range/Units 19:20 19:20 19:44 WBC (4.5-11.0) X10^3/uL RBC (4.5-5.9) X10^6/uL Hgb (13.5-17.5) g/dL Hct (41-53) % MCV (80-100) fL MCH (26-34) PG MCHC (30-36) % RDW (11.6-14.8) % Plt Count (150-400) X10^3/uL Neut % (Auto) (50-75) % Lymph % (Auto) (25-40) % [place] % (Auto) (3-14) % Eos % (Auto) (2-4) % Baso % (Auto) (0-2) % Neut # (Auto) (9670-7020) /uL Lymph # (Auto) (2754-0984) /uL [place] # (Auto) (0-900) /uL Eos # (Auto) (0-450) /uL Baso # (Auto) (0-100) /uL PT 15.9 H (10.1-12.7) SECONDS INR 1.4 H (0.9-1.3) D-Dimer (<230) ng/mL Sodium (137-145) mmol/L Potassium (3.4-5.1) mmol/L Chloride (98-107) mmol/L Carbon Dioxide (22-32) mmol/L BUN (9-20) mg/dL Creatinine (0.66-1.25) mg/dL Estimated GFR (>60) mL/min BUN/Creatinine Ratio (6-22) Glucose (80-110) mg/dL Calcium (8.4-10.2) mg/dL Total Bilirubin (0.2-1.3) mg/dL AST (17-59) IU/L ALT (<50) IU/L Alkaline Phosphatase (38-126) U/L Total Creatine Kinase 136 (55-170) U/L CK-MB (CK-2) 3.30 H (<2.37) ng/mL CK-MB (CK-2) Rel Index 2.4 (1.5-5.0) % Troponin I < 0.012 (0.01-0.034) ng/mL NT-Pro-B Natriuret Pep 116 (<125) pg/mL Total Protein (6.3-8.2) g/dL Albumin (3.5-5.0) g/dL Globulin (1.7-4.1) g/dL Albumin/Globulin Ratio (1.0-2.8) Lipase 143 (23-300) U/L SARS-CoV-2 (PCR) Negative (Negative) Imaging Data CT scan - chest: Radiologist's Impression: Rocky Emery V??70??M??1950 ? Allergy/Adv: No Known Drug Allergies (More??) Close Chest CTA (Signed) Naman Arellano - 09/22/21 Vascular Ultrasound (Signed) Naman Arellano - 09/22/21 Chest X-Ray (Signed) Jose Tapia - 09/22/21 Shoulder MRI (Signed) Oswaldo Osullivan - 07/15/21 Injection for MRI Arthrogram (Signed) Raven Bryant - 07/15/21 MRI Orbit/Face/Neck/IAC (Signed) Star Alvarez - 06/29/18 Launch?[place] [address] CT Scan Report Signed Patient: Rocky Emery V MR#: [id number] : 1950 Acct:[id number] Age/Sex: 70 / M Date of Service: 09/22/21 Loc: ED Accession Number: [id number] ?? Procedure: CT angio chest PE protocol Ordering Provider: Leslie Thompson PROCEDURE:? CT ANGIO CHEST PE PROTOCOL ? INDICATIONS:? DVT, shortness of breath ? TECHNIQUE:? After the administration of intravenous contrast, 2 mm thick sections acquired from the pulmonary apices to the posterior costophrenic angles.? 3-dimensional maximum intensity projection (MIP) coronal and sagittal reformats were then acquired through the thorax.? For radiation dose reduction, the following was used:? automated exposure control, adjustment of mA and/or kV according to patient size.? ? COMPARISON:? [facility], CT, CT KUB, 05/04/2019, 18:03.? [facility], US, US PERIPH VENOUS LOW EXTREM LT, 09/22/2021, 19:27. ? FINDINGS:? Image quality:? Excellent.? ? Pulmonary arteries:? There are extensive bilateral filling defects involving the right and left lobar pulmonary arteries extending into segmental and subsegmental branches within all lobes.? The main pulmonary artery is mildly enlarged, measuring up to 3.2 cm.? There is flattening the interventricular septum with suggestion of minimal leftward deviation. ? Lower Neck: No lymphadenopathy by size criteria. Thyroid:? Visualized thyroid demonstrates no discrete nodules. Axillae: No lymphadenopathy by size criteria. Chest Wall:? Unremarkable.? Bones: Visualized osseous structures demonstrate no suspicious lesions. ? Lungs and Airways:? No acute consolidation.? There is mild atelectasis bilateral ly.? Mild linear peripheral opacities in the right upper and middle lobes likely represent scarring or atelectasis and less likely early infarcts.? The trachea and central airways are patent. Pleura: No pneumothorax or pleural effusions.? ? Heart: Heart size is normal.? No pericardial effusion. Thoracic Vessels: The aorta appears normal in size.? Mediastinum and Georgina: No lymphadenopathy by size criteria. Esophagus: No wall thickening. No hiatal hernia. Abdomen:? Visualized upper abdomen demonstrates a small hypodense focus in the right hepatic lobe which is too small to characterize appears unchanged compared to the prior study and likely represent cysts.? Visualized kidneys demonstrate 2 no nobstructing stones on the left measuring up to 0.6 cm and 2 small on the right measuring to 0.4 cm. ? IMPRESSION:? ? 1. Extensive bilateral pulmonary embolism involving the right and left lobar pulmonary arteries with extension into segmental and branches into all lobes. ? 2. Mild enlargement of the main pulmonary artery and minimal leftward deviation of the interventricular septum are suggestive of developing right heart strain. ? Findings discussed with Dr. Rahman on 01/23/2022 at 9:06 p.m. ? 3. Bilateral nephrolithiasis in the visualized kidneys. ? 4. Linear opacities peripherally in the right lung likely represent scarring or atelectasis.? Early developing pulmonary infarcts are less likely.? ? Dictated by: Naman Arellano M.D. on 09/22/2021 at 20:59 ? ? Approved by: Naman Arellano M.D. on 09/22/2021 at 21:14?? [facility] Narrative Medical decision making narrative: This is a 70-year-old male with history of ILIANA, obesity, right shoulder surgery two weeks ago and is not on any anticoagulants who presents to the emergency department today for three days of left lower leg swelling and new shortness of breath with exertion. On exam, his left lower extremity is edematous without signs of cellulitis or infection. Ultrasound DVT of his left lower extremity shows Lab work does not show any leukocytosis, anemia, he does have thrombocytopenia with a platelet count of 130, this is consistent with his priors. His INR is 1.4, D-dimer is elevated at 4696, creatinine is 1.05 which is stable at his baseline, AST is mildly elevated at 65, this is consistent with priors, CK MB is elevated at 3.3 however CK-MB relative index is not elevated and his troponin is 0.012. BNP is not elevated at 116, lipase is 143. COVID PCR CT PE Dr Rahman: I did receive turned over. I do review the patient's history and physical exam. He recently had shoulder surgery. He has no issues with regard to that today. Has had 3 days of left leg swelling and also dyspnea on exertion and shortness of breath. Today his left lower extremities positive for DVT. The CT scan of the chest also shows bilateral pulmonary emboli. Received a call from radiology who stated that there is some evidence of right heart strain however patient has negative troponin. Negative BNP. Not tachycardic. Not hypotensive. Ambulated without becoming hypoxic. I did discuss the case with Dr. Pierce with cardiology who stated that the patient is not currently a candidate for catheter directed thrombolysis. Given his stable vital signs and no need for oxygen will discharge patient home and start the patient on Eliquis. Was given the 1st dose here in the emergency department and a prescription was sent to the pharmacy of his choice. He was also instructed to contact his primary doctor for follow-up. He was given return precautions. He expressed understanding and agreement. Discharge Plan Departure Patient Disposition: Home Clinical Impression: Pulmonary embolism DVT (deep venous thrombosis) Qualifiers: DVT location: lower extremity Activity Restrictions/Additional Instructions: It is important that you continue to take the new anticoagulation called Eliquis/apixaban. A prescription for this was [facility]. It is important that you contact your primary doctor for a follow-up. Return to the emergency department for any new or worsening symptoms. Prescriptions: New Eliquis 5 mg tablet 5 mg PO BID Qty: 70 0RF Rx Instructions: take 2T Po BID for 7 days then 1T PO BID after No Action ondansetron 4 mg tablet,disintegrating 4 mg PO Q6-8H PRN (Reason: nausea and vomiting) Qty: 30 4RF aspirin [Adult Low Dose Aspirin] 81 mg tablet,delayed release (DR/EC) 81 mg PO DAILY duloxetine PO meloxicam PO omega-3 fatty acids PO meclizine 25 mg tablet 25 mg PO BID-TID PRN (Reason: dizziness) Qty: 30 0RF (DME) Respironics Dreamstation CPAP Qty: 1 Dose Instruction: As directed Label Comments: Pressure: 12-16 cmH2O DME: [facility] Rx Instructions: As directed rosuvastatin 10 mg tablet 10 mg PO DAILY Referrals: Talisha Aguilera MD [Primary Care Provider] - Visit Report Forms: Patient Portal/API
[2021-09-22 19:58] LABS: Creatine Kinase 136 U/L (55-170); Lipase 143 U/L (23-300)
[2021-09-22 19:59] LABS: Alanine Aminotransferase 48 IU/L (<50); Albumin 3.7 g/dL (3.5-5.0); Albumin Globulin Ratio 1.3 (1.0-2.8); Alkaline Phosphatase 71 U/L (38-126); Aspartate Aminotransferase 65 IU/L (17-59); Bilirubin Total 0.8 mg/dL (0.2-1.3); Blood Urea Nitrogen 21 mg/dL (9-20); Calcium 9.8 mg/dL (8.4-10.2); Carbon Dioxide 28 mmol/L (22-32); Chloride 103 mmol/L (98-107); Estimated Glomerular Filt Rate > 60 mL/min (>60); Globulin 2.9 g/dL (1.7-4.1); Glucose 98 mg/dL (80-110); HEMOLYSIS < 15 (0-50); Potassium 4.3 mmol/L (3.4-5.1); Sodium 137 mmol/L (137-145); Total Protein 6.6 g/dL (6.3-8.2)
[2021-09-22 20:11] LABS: NT-proBNP (BNP-Adult 18+) 116 pg/mL (<125); Troponin I < 0.012 ng/mL (0.01-0.034)
[2021-09-22 20:13] LABS: CKMB % Relative Index 2.4 % (1.5-5.0)
[2021-09-22 20:27] LABS: D Dimer 4696 ng/mL (<230)
[2021-09-22 20:34] LABS: INR 1.4 (0.9-1.3); Prothrombin Time 15.9 SECONDS (10.1-12.7)
[2021-09-22 20:56] LABS: COVID19 -Nasal RAPID Negative (Negative)
--- NOTE | 2021-09-22 21:25 | PC.NURSE ---
Pt had ambulations trial, walk a [place] around the ED, O2 96-98% while ambulating.
[2021-09-22 21:41] VITALS: PULSE 90; RESP 18; O2SAT 98
[2021-09-22] MEDS: APIXABAN 5 MG TABLET 10 MG PO (22:45)
[2021-09-22 23:05] VITALS: BP 138/68; PULSE 88; RESP 18; O2SAT 99
== END 2021-09-22 23:06 | disposition home or self-care (01) ==
PROVIDERS: Nurse Practitioner Critical Care Medicine; Emergency Provider Emergency Medicine; PCP Internal Medicine
DX: I82.502 Chronic embolism and thrombosis of unspecified deep veins of left lower extremity (principal); I26.99 Other pulmonary embolism without acute cor pulmonale; D69.6 Thrombocytopenia, unspecified; R79.89 Other specified abnormal findings of blood chemistry; Z20.822 Contact with and (suspected) exposure to COVID-19
CPT/HCPCS: 36415; 71045; 71275; 80053; 82550; 82553; 83690; 83880; 84484; 85025; 85379; 85610; 87635; 93005; 93010; 93971; 99284; C9803; Q9967

== ENCOUNTER → 2021-12-31 13:08 | Outpatient (CLI) | payer MEDICARE, OTHER, SELFPAY ==
[2021-12-31 16:07] LABS: Add Manual Diff / Slide Review NO; Basophils Absolute Auto 0 /uL (0-100); Basophils Percent Auto 0.8 % (0-2); Eosinophils Absolute Auto 100 /uL (0-450); Eosinophils Percent Auto 2.7 % (2-4); Hematocrit 41.2 % (41-53); Hemoglobin 13.7 g/dL (13.5-17.5); Lymphocytes Absolute Auto 2100 /uL (1100-4500); Lymphocytes Percent Auto 39.4 % (25-40); Mean Corpuscular HGB Conc 33.3 % (30-36); Mean Corpuscular Hemoglobin 31.7 PG (26-34); Mean Corpuscular Volume 95.3 fL (80-100); Monocytes Absolute Auto 100 /uL (0-900); Monocytes Percent Auto 2.7 % (3-14); Neutrophils Absolute Auto 2900 /uL (1500-7000); Neutrophils Percent Auto 54.4 % (50-75); Platelet Count 152 X10^3/uL (150-400); Red Blood Cell Count 4.32 X10^6/uL (4.5-5.9); White Blood Cell Count 5.3 X10^3/uL (4.5-11.0)
[2021-12-31 16:40] LABS: Alanine Aminotransferase 40 IU/L (<50); Albumin 3.4 g/dL (3.5-5.0); Albumin Globulin Ratio 1.2 (1.0-2.8); Alkaline Phosphatase 80 U/L (38-126); Aspartate Aminotransferase 45 IU/L (17-59); BUN Creatinine Ratio 16.5 (6-22); Bilirubin Total 0.3 mg/dL (0.2-1.3); Blood Urea Nitrogen 14 mg/dL (9-20); C-Reactive Protein Quant < 0.5 mg/dL (<1.0); Calcium 9.2 mg/dL (8.4-10.2); Carbon Dioxide 23 mmol/L (22-32); Chloride 106 mmol/L (98-107); Estimated Glomerular Filt Rate > 60 mL/min (>60); Globulin 2.9 g/dL (1.7-4.1); Glucose 134 mg/dL (80-110); HEMOLYSIS 24 (0-50); Potassium 3.7 mmol/L (3.4-5.1); Sodium 138 mmol/L (137-145); Total Protein 6.3 g/dL (6.3-8.2)
[2021-12-31 17:17] LABS: Erythrocyte Sedimentation Rate 8 MM/HR (0-15)
== END ==
PROVIDERS: PCP Internal Medicine; Referring Provider Internal Medicine Rheumatology; Visit Provider Internal Medicine Rheumatology
DX: M05.79 Rheumatoid arthritis with rheumatoid factor of multiple sites without organ or systems involvement (principal); Z79.899 Other long term (current) drug therapy
CPT/HCPCS: 36415; 80053; 85025; 85651; 86140

== ENCOUNTER → 2022-01-07 11:22 | Outpatient (CLI) | payer MEDICARE, OTHER, SELFPAY ==
[2022-01-07 13:09] LABS: Estimated Glomerular Filt Rate > 60 mL/min (>60)
== END ==
PROVIDERS: PCP Internal Medicine; Referring Provider Specialist; Visit Provider Specialist
DX: I35.1 Nonrheumatic aortic (valve) insufficiency (principal)
CPT/HCPCS: 36415; 82565

== ENCOUNTER → 2022-04-07 08:31 | Outpatient (CLI) | payer MEDICARE, OTHER, SELFPAY ==
[2022-04-07 08:49] LABS: Add Manual Diff / Slide Review NO; Basophils Absolute Auto 0 /uL (0-100); Basophils Percent Auto 0.9 % (0-2); Eosinophils Absolute Auto 100 /uL (0-450); Hematocrit 44.9 % (41-53); Hemoglobin 15.2 g/dL (13.5-17.5); Lymphocytes Absolute Auto 1800 /uL (1100-4500); Lymphocytes Percent Auto 45.6 % (25-40); Mean Corpuscular HGB Conc 33.7 % (30-36); Mean Corpuscular Hemoglobin 33.7 PG (26-34); Mean Corpuscular Volume 99.9 fL (80-100); Monocytes Absolute Auto 300 /uL (0-900); Monocytes Percent Auto 7.1 % (3-14); Neutrophils Absolute Auto 1700 /uL (1500-7000); Neutrophils Percent Auto 43.4 % (50-75); Platelet Count 126 X10^3/uL (150-400); Red Cell Distribution Width 16.8 % (11.6-14.8)
[2022-04-07 09:07] LABS: Alanine Aminotransferase 32 IU/L (<50); Albumin 3.5 g/dL (3.5-5.0); Albumin Globulin Ratio 1.1 (1.0-2.8); Alkaline Phosphatase 86 U/L (38-126); Aspartate Aminotransferase 42 IU/L (17-59); BUN Creatinine Ratio 10.8 (6-22); Bilirubin Total 0.6 mg/dL (0.2-1.3); Blood Urea Nitrogen 9 mg/dL (9-20); Calcium 9.4 mg/dL (8.4-10.2); Carbon Dioxide 27 mmol/L (22-32); Chloride 104 mmol/L (98-107); Estimated Glomerular Filt Rate > 60 mL/min (>60); Globulin 3.1 g/dL (1.7-4.1); Glucose 220 mg/dL (80-110); HEMOLYSIS < 15 (0-50); Potassium 4.2 mmol/L (3.4-5.1); Sodium 137 mmol/L (137-145); Total Protein 6.6 g/dL (6.3-8.2)
== END ==
PROVIDERS: PCP Internal Medicine; Referring Provider Internal Medicine Rheumatology; Visit Provider Internal Medicine Rheumatology
DX: Z79.899 Other long term (current) drug therapy (principal); M05.79 Rheumatoid arthritis with rheumatoid factor of multiple sites without organ or systems involvement
CPT/HCPCS: 36415; 80053; 85025

== ENCOUNTER → 2022-04-30 14:57 | Outpatient (CLI) | payer MEDICARE, OTHER, SELFPAY ==
[2022-04-30 15:36] LABS: Add Manual Diff / Slide Review NO; Basophils Absolute Auto 100 /uL (0-100); Basophils Percent Auto 1.1 % (0-2); Eosinophils Absolute Auto 100 /uL (0-450); Eosinophils Percent Auto 1.2 % (2-4); Hematocrit 45.9 % (41-53); Hemoglobin 15.7 g/dL (13.5-17.5); Lymphocytes Absolute Auto 2600 /uL (1100-4500); Lymphocytes Percent Auto 32.3 % (25-40); Mean Corpuscular HGB Conc 34.3 % (30-36); Mean Corpuscular Hemoglobin 34.1 PG (26-34); Mean Corpuscular Volume 99.4 fL (80-100); Monocytes Absolute Auto 500 /uL (0-900); Monocytes Percent Auto 6.5 % (3-14); Neutrophils Absolute Auto 4700 /uL (1500-7000); Neutrophils Percent Auto 58.9 % (50-75); Platelet Count 146 X10^3/uL (150-400); Red Blood Cell Count 4.62 X10^6/uL (4.5-5.9); Red Cell Distribution Width 15.6 % (11.6-14.8)
[2022-04-30 15:55] LABS: Alanine Aminotransferase 33 IU/L (<50); Albumin 3.8 g/dL (3.5-5.0); Albumin Globulin Ratio 1.4 (1.0-2.8); Alkaline Phosphatase 99 U/L (38-126); Aspartate Aminotransferase 39 IU/L (17-59); BUN Creatinine Ratio 15.6 (6-22); Bilirubin Total 0.6 mg/dL (0.2-1.3); Blood Urea Nitrogen 14 mg/dL (9-20); Calcium 9.8 mg/dL (8.4-10.2); Carbon Dioxide 23 mmol/L (22-32); Chloride 104 mmol/L (98-107); Estimated Glomerular Filt Rate > 60 mL/min (>60); Globulin 2.8 g/dL (1.7-4.1); Glucose 196 mg/dL (80-110); HEMOLYSIS < 15 (0-50); Sodium 136 mmol/L (137-145); Total Protein 6.6 g/dL (6.3-8.2)
== END ==
PROVIDERS: PCP Internal Medicine; Referring Provider Internal Medicine Rheumatology; Visit Provider Internal Medicine Rheumatology
DX: M05.79 Rheumatoid arthritis with rheumatoid factor of multiple sites without organ or systems involvement (principal); Z79.899 Other long term (current) drug therapy
CPT/HCPCS: 36415; 80053; 85025

== ENCOUNTER 2022-07-19 15:31 | Emergency (ER) | payer MEDICARE, OTHER, SELFPAY ==
[2022-07-19 15:40] VITALS: BP 158/67; PULSE 64; RESP 18; TEMP 36.6; O2SAT 99; BMI 33.7
[2022-07-19] MEDS: fentaNYL 25 MCG/PATCH TOP (17:28)
[2022-07-19] MEDS: MORPHINE 4 MG/ML INJ IM (17:29)
[2022-07-19 17:42] VITALS: BP 148/75; PULSE 61; RESP 18; O2SAT 97
--- NOTE | 2022-07-19 17:43 | PC.NURSE ---
Patient evaluated, treated and discharged by provider prior to nursing assessment.
--- NOTE | 2022-07-19 20:27 | ED_ITS ---
HPI - Recheck/Abnormal Lab/Rx <Gladys Paez PA-C - Last Filed: 07/20/22 20:13> General Chief Complaint: Recheck/Abnormal Lab/Rx Stated Complaint: KIDNEY STONES Time Seen by Provider: 07/19/22 15:55 Source: patient and family Mode of arrival: Ambulatory History of Present Illness HPI narrative: 71-year-old male with a left-sided kidney stone presents to the ED for uncontrolled left flank pain from the kidney stone. Patient was diagnosed with a left-sided kidney stone for which he is scheduled to have lithotripsy tomorrow. Patient states that his pain has been uncontrollable today despite taking 3 pain pills of hydrocodone 5 mg. Patient denies fever, chills, endorses some nausea which is controlled with Zofran.. Related Data Home Medications Medication Instructions Recorded Confirmed aspirin 81 mg tablet,delayed 81 mg PO DAILY 01/20/18 03/17/21 release (Adult Low Dose Aspirin) duloxetine [Cymbalta] PO 01/20/18 03/17/21 meloxicam [Mobic] PO 01/20/18 03/17/21 omega-3 fatty acids [Fish Oil PO 01/20/18 03/17/21 Concentrate] Respironics Dreamstation CPAP #1 ea 10/25/18 03/17/21 rosuvastatin 10 mg tablet 10 mg PO DAILY 03/17/21 03/17/21 Previous Rx's Medication Instructions Recorded meclizine 25 mg tablet 25 mg PO BID-TID PRN dizziness #30 01/20/18 tabs ondansetron 4 mg disintegrating 4 mg PO Q6-8H PRN nausea and 05/23/18 tablet vomiting #30 tabs apixaban 5 mg tablet (Eliquis) 5 mg PO BID #70 tabs 09/22/21 Allergies Allergy/AdvReac Type Severity Reaction Status Date / Time [id number] Reductase AdvReac Intermediate Muscle Pain Verified 07/19/22 15:45 Inhibitor Review of Systems <Gladys Paez PA-C - Last Filed: 07/20/22 20:13> Review of Systems ROS Unobtainable: All systems reviewed & are unremarkable except as noted in HPI and below Constitutional Constitutional: Denies chills, Denies fatigue, Denies fever(s), Denies frequent falls, Denies lethargy and Denies weakness Eyes Eyes: Denies change in vision, Denies eye discharge, Denies irritation and Denies loss of vision ENT Ears, Nose, Mouth, and Throat: Denies change in voice, Denies dizziness, Denies neck pain, Denies sore throat and Denies throat swelling Cardiovascular Cardiovascular: Denies chest pain, Denies irregular heart rhythm, Denies lightheadedness, Denies palpitations, Denies dyspnea, Denies dyspnea on exertion and Denies orthopnea Respiratory Respiratory: Denies cough, Denies dyspnea, Denies dyspnea on exertion and Denies wheezing Gastrointestinal Gastrointestinal: Denies abdominal pain, Denies change in bowel habits, Denies diarrhea, Denies nausea and Denies vomiting Genitourinary Genitourinary: Denies hematuria, Denies flank pain, Denies urinary incontinence and Denies urinary urgency Comments: L sided flank pain Musculoskeletal Musculoskeletal: Denies back pain, Denies muscle weakness, Denies neck pain, Denies numbness and Denies tingling Integumentary/Breasts Skin/Breast: Denies pruritus, Denies erythema, Denies rash and Denies wounds Neurologic Neurologic: Denies behavioral changes, Denies confusion, Denies dizziness, Denies frequent falls, Denies loss of vision, Denies numbness, Denies tingling and Denies weakness Psychiatric Psychiatric: Denies anxiety, Denies behavioral changes, Denies confusion, Denies depression, Denies homicidal ideation and Denies suicidal ideation Endocrine Endocrine: Denies fatigue, Denies flushing and Denies palpitations Hematologic/Lymphatic Hematologic/Lymphatic: Denies easy bruising Allergic/Immunologic Allergic/Immunologic: Denies urticaria, Denies throat swelling and Denies wheezing Patient History <Gladys Paez PA-C - Last Filed: 07/20/22 20:13> Medical History Anxiety Depression Hypertension Obesity (BMI 30-39.9) Family History Father Heart attack Social History Smoking Status: Never smoker Smoking Status: Never smoker Exam <Gladys Paez PA-C - Last Filed: 07/20/22 20:13> Narrative Exam Narrative: Const General:?cooperative, healthy appearing and comfortable [facility] Head:?normal to inspection Ears:?hearing grossly normal bilaterally Nose:?external nose normal Face and sinus:?normal facial exam and sinuses nontender Mouth:?oral mucosae normal Throat:?posterior oropharynx normal Eyes General:?appearance normal, both eyes and all related structures Neck Neck:?normal visual inspection and no lymphadenopathy noted Resp Effort & Inspection:?normal respiratory effort Auscultation:?clear to auscultation bilaterally Cardio Rate:?regular rate Rhythm:?regular rhythm GI Abdomen is soft, nondistended, nontender to palpation. There is no CVA tend erness. Neuro General:?patient alert, patient awake and patient oriented x3 Initial Vital Signs Initial Vital Signs: Vital Signs Temperature 97.8 F 07/19/22 15:40 Pulse Rate 64 07/19/22 15:40 Respiratory Rate 18 07/19/22 15:40 Blood Pressure 158/67 H 07/19/22 15:40 Pulse Oximetry 99 07/19/22 15:40 Oxygen Delivery Method Room Air 07/19/22 15:40 <Lexie Fortune DO - Last Filed: 07/23/22 05:52> Initial Vital Signs Initial Vital Signs: Vital Signs Temperature 97.8 F 07/19/22 15:40 Pulse Rate 64 07/19/22 15:40 Respiratory Rate 18 07/19/22 15:40 Blood Pressure 158/67 H 07/19/22 15:40 Pulse Oximetry 99 07/19/22 15:40 Oxygen Delivery Method Room Air 07/19/22 15:40 Course <Gladys Paez PA-C - Last Filed: 07/20/22 20:13> Orders Ordered: Discontinued Medications Fentanyl (Fentanyl 25 Mcg/Patch) 25 mcg TOP NOW ONE Stop: 07/19/22 17:04 Last Admin: 07/19/22 17:28 Dose: 25 mcg Documented By: BO Morphine Sulfate (Morphine 4 Mg/Ml Inj) 4 mg IM NOW ONE Stop: 07/19/22 17:04 Last Admin: 07/19/22 17:29 Dose: 4 mg Documented By: BO Vital Signs Vital signs: Vital Signs - 8 hr 07/19/22 15:40 07/19/22 17:42 Temperature 97.8 F Pulse Rate 64 61 Respiratory Rate 18 18 Blood Pressure 158/67 H 148/75 H Pulse Oximetry 99 97 Oxygen Delivery Method Room Air Room Air <Lexie Fortune DO - Last Filed: 07/23/22 05:52> Orders Ordered: Discontinued Medications Fentanyl (Fentanyl 25 Mcg/Patch) 25 mcg TOP NOW ONE Stop: 07/19/22 17:04 Last Admin: 07/19/22 17:28 Dose: 25 mcg Documented By: BO Morphine Sulfate (Morphine 4 Mg/Ml Inj) 4 mg IM NOW ONE Stop: 07/19/22 17:04 Last Admin: 07/19/22 17:29 Dose: 4 mg Documented By: RL Vital Signs Vital signs: Vital Signs - 8 hr 07/19/22 15:40 07/19/22 17:42 Temperature 97.8 F Pulse Rate 64 61 Respiratory Rate 18 18 Blood Pressure 158/67 H 148/75 H Pulse Oximetry 99 97 Oxygen Delivery Method Room Air Room Air MDM - Recheck/Abnormal Lab/Rx <Gladys Paez PA-C - Last Filed: 07/20/22 20:13> MDM Narrative Medical decision making narrative: 71-year-old male with a left-sided kidney stone presents to the ED for uncontrolled left flank pain from the kidney stone. Will give patient 4 mg IV of morphine, apply a fentanyl patch that will last him until his lithotripsy. ED return precautions were discussed with patient. Patient verbalized understanding. Medical records reviewed: Yes Discharge Plan Departure Patient Disposition: Home Clinical Impression: Kidney stone Instructions: DI for Kidney Stones Activity Restrictions/Additional Instructions: You were evaluated in the ED today for uncontrolled pain due to kidney stones. You were given a dose of morphine, a fentanyl patch applied that should be effective for 72 hours, which should last you until you lithotripsy which is scheduled tomorrow. Return to the ED if your pain is still uncontrolled with these medications, you are persistently vomiting. Prescriptions: No Action ondansetron 4 mg tablet,disintegrating 4 mg PO Q6-8H PRN (Reason: nausea and vomiting) Qty: 30 4RF aspirin [Adult Low Dose Aspirin] 81 mg tablet,delayed release (DR/EC) 81 mg PO DAILY duloxetine PO meloxicam PO omega-3 fatty acids PO meclizine 25 mg tablet 25 mg PO BID-TID PRN (Reason: dizziness) Qty: 30 0RF Eliquis 5 mg tablet 5 mg PO BID Qty: 70 0RF Rx Instructions: take 2T Po BID for 7 days then 1T PO BID after (DME) Respironics Dreamstation CPAP Qty: 1 Dose Instruction: As directed Patient Comments: Pressure: 12-16 cmH2O DME: [facility] [place] [facility] Rx Instructions: As directed rosuvastatin 10 mg tablet 10 mg PO DAILY Referrals: Talisha Aguilera MD [Primary Care Provider] - Stand Alone Forms: Patient Portal/API <Lexie Fortune DO - Last Filed: 07/23/22 05:52> Cosign ED Attending Cosignature Attestation: I was immediately available in the department for consultation. Documentation has been reviewed.
== END 2022-07-19 17:42 | disposition home or self-care (01) ==
PROVIDERS: Emergency Provider Student in an Organized Health Care Education/Training Program; PCP Internal Medicine
DX: N20.0 Calculus of kidney (principal)
CPT/HCPCS: 96372; 99283; J2270

== ENCOUNTER → 2022-11-23 10:19 | Outpatient (CLI) | payer MEDICARE, OTHER, SELFPAY ==
[2022-11-23 13:16] LABS: Uric Acid 5.7 mg/dL (3.5-8.5)
[2022-11-25 08:42] LABS: Parathyroid Hormone Int 57 pg/mL (15-65)
== END ==
PROVIDERS: PCP Internal Medicine; Referring Provider Urology; Visit Provider Urology
DX: N20.0 Calculus of kidney (principal)
CPT/HCPCS: 36415; 83970; 84550

== ENCOUNTER → 2022-12-03 11:54 | Outpatient (CLI) | payer MEDICARE, OTHER, SELFPAY ==
[2022-12-03 12:58] LABS: Add Manual Diff / Slide Review NO; Basophils Absolute Auto 0 /uL (0-100); Basophils Percent Auto 0.8 % (0-2); Eosinophils Absolute Auto 100 /uL (0-450); Eosinophils Percent Auto 2.2 % (2-4); Hematocrit 40.4 % (41-53); Hemoglobin 13.4 g/dL (13.5-17.5); Lymphocytes Absolute Auto 1400 /uL (1100-4500); Lymphocytes Percent Auto 31.5 % (25-40); Mean Corpuscular HGB Conc 33.2 % (30-36); Mean Corpuscular Volume 96.4 fL (80-100); Monocytes Absolute Auto 300 /uL (0-900); Monocytes Percent Auto 6.8 % (3-14); Neutrophils Absolute Auto 2500 /uL (1500-7000); Neutrophils Percent Auto 58.7 % (50-75); Platelet Count 155 X10^3/uL (150-400); Red Blood Cell Count 4.19 X10^6/uL (4.5-5.9); Red Cell Distribution Width 16.4 % (11.6-14.8); White Blood Cell Count 4.3 X10^3/uL (4.5-11.0)
[2022-12-03 13:13] LABS: Alanine Aminotransferase 36 IU/L (<50); Albumin 3.5 g/dL (3.5-5.0); Albumin Globulin Ratio 1.2 (1.0-2.8); Alkaline Phosphatase 77 U/L (38-126); Aspartate Aminotransferase 55 IU/L (17-59); BUN Creatinine Ratio 12.8 (6-22); Bilirubin Total 0.5 mg/dL (0.2-1.3); Blood Urea Nitrogen 12 mg/dL (9-20); Calcium 9.8 mg/dL (8.4-10.2); Carbon Dioxide 28 mmol/L (22-32); Chloride 105 mmol/L (98-107); Estimated Glomerular Filt Rate > 60 mL/min (>60); Glucose 154 mg/dL (80-110); HEMOLYSIS < 15 (0-50); Potassium 4.5 mmol/L (3.4-5.1); Sodium 136 mmol/L (137-145); Total Protein 6.5 g/dL (6.3-8.2)
== END ==
PROVIDERS: PCP Internal Medicine; Referring Provider Internal Medicine Rheumatology; Visit Provider Internal Medicine Rheumatology
DX: M05.79 Rheumatoid arthritis with rheumatoid factor of multiple sites without organ or systems involvement (principal); Z79.899 Other long term (current) drug therapy
CPT/HCPCS: 36415; 80053; 85025

== ENCOUNTER → 2023-03-23 14:34 | Outpatient (CLI) | payer MEDICARE, OTHER, SELFPAY ==
[2023-03-23 15:31] LABS: Add Manual Diff / Slide Review NO; Basophils Absolute Auto 0 /uL (0-100); Basophils Percent Auto 0.5 % (0-2); Eosinophils Absolute Auto 100 /uL (0-450); Eosinophils Percent Auto 2.1 % (2-4); Hematocrit 40.9 % (41-53); Hemoglobin 13.7 g/dL (13.5-17.5); Lymphocytes Absolute Auto 1800 /uL (1100-4500); Lymphocytes Percent Auto 30.5 % (25-40); Mean Corpuscular HGB Conc 33.5 % (30-36); Mean Corpuscular Hemoglobin 33.2 PG (26-34); Mean Corpuscular Volume 99.1 fL (80-100); Monocytes Absolute Auto 400 /uL (0-900); Monocytes Percent Auto 7.3 % (3-14); Neutrophils Absolute Auto 3600 /uL (1500-7000); Neutrophils Percent Auto 59.6 % (50-75); Platelet Count 133 X10^3/uL (150-400); Red Blood Cell Count 4.13 X10^6/uL (4.5-5.9); Red Cell Distribution Width 18.3 % (11.6-14.8)
[2023-03-23 15:54] LABS: Alanine Aminotransferase 49 IU/L (<50); Albumin 3.5 g/dL (3.5-5.0); Albumin Globulin Ratio 1.1 (1.0-2.8); Alkaline Phosphatase 72 U/L (38-126); Aspartate Aminotransferase 69 IU/L (17-59); BUN Creatinine Ratio 18.5 (6-22); Bilirubin Total 0.7 mg/dL (0.2-1.3); Blood Urea Nitrogen 17 mg/dL (9-20); Calcium 9.9 mg/dL (8.4-10.2); Carbon Dioxide 28 mmol/L (22-32); Chloride 103 mmol/L (98-107); Estimated Glomerular Filt Rate > 60 mL/min (>60); Globulin 3.1 g/dL (1.7-4.1); Glucose 121 mg/dL (80-110); HEMOLYSIS < 15 (0-50); Potassium 4.4 mmol/L (3.4-5.1); Sodium 136 mmol/L (137-145); Total Protein 6.6 g/dL (6.3-8.2)
== END ==
PROVIDERS: PCP Internal Medicine; Referring Provider Internal Medicine Rheumatology; Visit Provider Internal Medicine Rheumatology
DX: M05.79 Rheumatoid arthritis with rheumatoid factor of multiple sites without organ or systems involvement (principal); Z79.899 Other long term (current) drug therapy
CPT/HCPCS: 36415; 80053; 85025

== ENCOUNTER → 2023-04-01 11:27 | Outpatient (CLI) | payer MEDICARE, OTHER, SELFPAY ==
[2023-04-01 13:00] LABS: Add Manual Diff / Slide Review NO; Basophils Absolute Auto 0 /uL (0-100); Basophils Percent Auto 0.8 % (0-2); Eosinophils Absolute Auto 200 /uL (0-450); Eosinophils Percent Auto 3.7 % (2-4); Hematocrit 41.5 % (41-53); Lymphocytes Absolute Auto 1400 /uL (1100-4500); Lymphocytes Percent Auto 31.5 % (25-40); Mean Corpuscular HGB Conc 33.7 % (30-36); Mean Corpuscular Hemoglobin 32.9 PG (26-34); Mean Corpuscular Volume 97.5 fL (80-100); Monocytes Absolute Auto 100 /uL (0-900); Monocytes Percent Auto 2.4 % (3-14); Neutrophils Absolute Auto 2700 /uL (1500-7000); Neutrophils Percent Auto 61.6 % (50-75); Platelet Count 134 X10^3/uL (150-400); Red Blood Cell Count 4.26 X10^6/uL (4.5-5.9); Red Cell Distribution Width 17.6 % (11.6-14.8); White Blood Cell Count 4.4 X10^3/uL (4.5-11.0)
[2023-04-01 13:33] LABS: Alanine Aminotransferase 48 IU/L (<50); Albumin 3.6 g/dL (3.5-5.0); Albumin Globulin Ratio 1.2 (1.0-2.8); Alkaline Phosphatase 73 U/L (38-126); Aspartate Aminotransferase 56 IU/L (17-59); BUN Creatinine Ratio 14.1 (6-22); Bilirubin Total 0.8 mg/dL (0.2-1.3); Blood Urea Nitrogen 13 mg/dL (9-20); Calcium 9.7 mg/dL (8.4-10.2); Carbon Dioxide 24 mmol/L (22-32); Chloride 105 mmol/L (98-107); Estimated Glomerular Filt Rate > 60 mL/min (>60); Globulin 2.9 g/dL (1.7-4.1); Glucose 190 mg/dL (80-110); HEMOLYSIS < 15 (0-50); Potassium 4.4 mmol/L (3.4-5.1); Sodium 134 mmol/L (137-145); Total Protein 6.5 g/dL (6.3-8.2)
== END ==
LOC: LAB 11:28
PROVIDERS: PCP Internal Medicine; Referring Provider Internal Medicine Rheumatology; Visit Provider Internal Medicine Rheumatology
DX: M05.79 Rheumatoid arthritis with rheumatoid factor of multiple sites without organ or systems involvement (principal); Z79.899 Other long term (current) drug therapy
CPT/HCPCS: 36415; 80053; 85025

== ENCOUNTER 2024-04-05 18:29 | Emergency (ER) | payer MEDICARE, OTHER, SELFPAY ==
[2024-04-05 18:54] VITALS: BP 152/72; PULSE 71; RESP 16; O2SAT 97; BMI 37.3
--- NOTE | 2024-04-05 19:50 | ED.WOUNDLAC ---
HPI - Wound/Laceration General Chief Complaint: Wound/Laceration Stated Complaint: Right hand laceration from saw Time Seen by Provider: 04/05/24 19:22 Source: patient Mode of arrival: Ambulatory History of Present Illness HPI narrative: patient is a 73-year-old male here for evaluation of a laceration to the back of his right index finger that occurred while using a saw and cutting some wood. States that he was up-to-date on his tetanus. No other injuries from the event. Covered with a bandage prior to arrival. Related Data Home Medications Medication Instructions Recorded Confirmed aspirin 81 mg tablet,delayed 81 mg PO DAILY 01/20/18 03/17/21 release (Adult Low Dose Aspirin) duloxetine [Cymbalta] PO 01/20/18 03/17/21 meloxicam [Mobic] PO 01/20/18 03/17/21 omega-3 fatty acids [Fish Oil PO 01/20/18 03/17/21 Concentrate] Respironics Dreamstation CPAP #1 ea 10/25/18 03/17/21 rosuvastatin 10 mg tablet 10 mg PO DAILY 03/17/21 03/17/21 Previous Rx's Medication Instructions Recorded meclizine 25 mg tablet 25 mg PO BID-TID PRN dizziness #30 01/20/18 tabs ondansetron 4 mg disintegrating 4 mg PO Q6-8H PRN nausea and 05/23/18 tablet vomiting #30 tabs apixaban 5 mg tablet (Eliquis) 5 mg PO BID #70 tabs 09/22/21 Allergies Allergy/AdvReac Type Severity Reaction Status Date / Time [id number] Reductase AdvReac Intermediate Muscle Pain Verified 07/19/22 15:45 Inhibitor Review of Systems Review of Systems Narrative: See HPI Patient History Medical History Depression Obesity (BMI 30-39.9) Hypertension Anxiety Family History Father Heart attack Social History Smoking Status: Never smoker Smoking Status: Never smoker Exam Initial Vital Signs Initial Vital Signs: Vital Signs Pulse Rate 71 04/05/24 18:54 Respiratory Rate 16 04/05/24 18:54 Blood Pressure 152/72 H 04/05/24 18:54 Pulse Oximetry 97 04/05/24 18:54 Oxygen Delivery Method Room Air 04/05/24 18:54 Skin Other: 3 cm laceration to the dorsum of the right hand just proximal to the MCP joint Of the index finger. Neuro Sensory Exam: no sensory deficits noted Extrem Other: Full range of motion of the IP PIP and MCP joint of the right index finger and ring finger. Procedures Laceration Repair Laceration 1: Site: hand Side (If applicable): right Size (cm): 3 Description: linear Depth: simple, single layer Local Anesthetic: lidocaine 1% Amount of anesthesia used (mL): 6 Pre-repair: wound explored, irrigated extensively and deep structures intact Skin layer closed with: nylon Skin layer suture size: 4-0 Number of sutures: 9 Technique: simple, interrupted Course Orders Ordered: Discontinued Medications Bacitracin (Bacitracin Oint 0.9 Gm Pckt) 1 applic TOP NOW ONE Stop: 04/05/24 20:16 Last Admin: 04/05/24 20:22 Dose: 1 applic Documented By: TOM Vital Signs Vital signs: Vital Signs - 8 hr 04/05/24 18:54 04/05/24 20:06 04/05/24 20:40 Pulse Rate 71 65 69 Respiratory Rate 16 18 18 Blood Pressure 152/72 H 152/69 H Pulse Oximetry 97 97 97 Oxygen Delivery Method Room Air Room Air Room Air MDM - Wound/Laceration MDM Narrative Medical decision making narrative: Patient was neurovascularly intact prior to anesthetizing the finger. He was irrigated extensively. There does not appear to be any ligamentous/tendon injuries. Skin was closed as described above. Patient was given care instructions and return precautions. He expressed understanding and agreement. Discharge Plan Departure Patient Disposition: Home Clinical Impression: Laceration Instructions: DI for Laceration Repair Activity Restrictions/Additional Instructions: Continue to take all of your medications as directed. You can wash your hands like normal and use soap and water. You can cover the area with a topical antibiotic ointment such as bacitracin or Neosporin. The stitches do need to be removed in 7-10 days. This can be done either your primary doctor's office or the walk-in clinic. Return to the emergency department for new symptoms. Prescriptions: No Action ondansetron 4 mg tablet,disintegrating 4 mg PO Q6-8H PRN (Reason: nausea and vomiting) Qty: 30 4RF aspirin [Adult Low Dose Aspirin] 81 mg tablet,delayed release (DR/EC) 81 mg PO DAILY duloxetine PO meloxicam PO omega-3 fatty acids PO meclizine 25 mg tablet 25 mg PO BID-TID PRN (Reason: dizziness) Qty: 30 0RF Eliquis 5 mg tablet 5 mg PO BID Qty: 70 0RF Rx Instructions: take 2T Po BID for 7 days then 1T PO BID after (DME) Respironics Dreamstation CPAP Qty: 1 Dose Instruction: As directed Patient Comments: Pressure: 12-16 cmH2O DME: [facility] Instructions: As directed rosuvastatin 10 mg tablet 10 mg PO DAILY Referrals: Talisha Aguilera MD [Primary Care Provider] - Stand Alone Forms: Patient Portal/API/Survey
[2024-04-05 20:06] VITALS: PULSE 65; RESP 18; O2SAT 97
[2024-04-05] MEDS: BACITRACIN OINT 0.9 GM PCKT 1 APPLIC TOP (20:22)
[2024-04-05 20:40] VITALS: BP 152/69; PULSE 69; RESP 18; O2SAT 97
== END 2024-04-05 20:40 | disposition home or self-care (01) ==
PROVIDERS: Emergency Provider Emergency Medicine; PCP Internal Medicine
DX: S61.210A Laceration without foreign body of right index finger without damage to nail, initial encounter (principal); W27.0XXA Contact with workbench tool, initial encounter; E66.9 Obesity, unspecified; Z68.37 Body mass index [BMI] 37.0-37.9, adult; I10 Essential (primary) hypertension
CPT/HCPCS: 12002; 99283

== ENCOUNTER → 2024-05-09 10:13 | Outpatient (CLI) | payer MEDICARE, OTHER, SELFPAY ==
[2024-05-09 10:43] LABS: Hematocrit 46.6 % (41-53); Hemoglobin 15.8 g/dL (13.5-17.5); Mean Corpuscular HGB Conc 33.8 % (30-36); Mean Corpuscular Hemoglobin 34.3 PG (26-34); Mean Corpuscular Volume 101.4 fL (80-100); Platelet Count 116 X10^3/uL (150-400); Red Cell Distribution Width 15.4 % (11.6-14.8); White Blood Cell Count 4.6 X10^3/uL (4.5-11.0)
[2024-05-09 11:06] LABS: Alanine Aminotransferase 55 IU/L (<50); Albumin 4.1 g/dL (3.5-5.0); Albumin Globulin Ratio 1.4 (1.0-2.8); Alkaline Phosphatase 76 U/L (38-126); Aspartate Aminotransferase 76 IU/L (17-59); BUN Creatinine Ratio 13.3 (6-22); Bilirubin Total 0.9 mg/dL (0.2-1.3); Blood Urea Nitrogen 14 mg/dL (9-20); Calcium 9.6 mg/dL (8.4-10.2); Carbon Dioxide 26 mmol/L (22-32); Chloride 105 mmol/L (98-107); Cholesterol 129 mg/dL (140-199); Estimated Glomerular Filt Rate > 60 mL/min (>60); Glucose 102 mg/dL (80-110); HDL Cholesterol 59 mg/dL (40-60); HEMOLYSIS 50 (0-50); LDL Cholesterol Calculated 45 mg/dL (<100); Potassium 4.3 mmol/L (3.4-5.1); Sodium 138 mmol/L (137-145); Total Protein 7.1 g/dL (6.3-8.2); Triglycerides 125 mg/dL (35-150)
== END ==
LOC: LAB 10:19
PROVIDERS: PCP Internal Medicine; Referring Provider Internal Medicine; Visit Provider Internal Medicine
DX: E78.5 Hyperlipidemia, unspecified (principal)
CPT/HCPCS: 36415; 80053; 80061; 85027

== ENCOUNTER 2024-07-11 07:33 | Emergency (ER) | payer MEDICARE, OTHER, SELFPAY ==
[2024-07-11 08:16] VITALS: BP 141/70; PULSE 82; RESP 16; TEMP 36.3; O2SAT 98; BMI 35.8
--- NOTE | 2024-07-11 08:19 | DI.RAD.S_ITS ---
PROCEDURE: XR WRIST RT MIN 3V INDICATIONS: fall, wrist px, 4th toe deformity, ant foot swelling TECHNIQUE: 4 views of the wrist were acquired. COMPARISON: None. FINDINGS: Bones: No fractures or dislocations. 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 Scaphoid view rueda demonstrates no scaphoid fracture. Deformity of the 5th metacarpal is consistent with remote healed fracture. No suspicious bony lesions. Soft tissues: No suspicious soft tissue calcifications. IMPRESSION: 1. No acute bony abnormality identified. 2. 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 Dictated by: Elliot Springer M.D. on 07/11/2024 at 8:55 Approved by: Elliot Springer M.D. on 07/11/2024 at 8:57
--- NOTE | 2024-07-11 08:19 | DI.RAD.S_ITS ---
PROCEDURE: XR FOOT RT MIN 3V INDICATIONS: fall, wrist px, 4th toe deformity, ant foot swelling TECHNIQUE: 3 views of the foot were acquired. COMPARISON: None. FINDINGS: Bones: Oblique mildly displaced shaft fracture of the 3rd metatarsal. Possible crack of the neck of the 2nd metatarsal. This fracture would be vertically oriented, seen on the AP view. Mildly angulated oblique fracture of the 4th proximal phalanx. No suspicious bony lesions. Soft tissues: No tibiotalar joint effusion. Achilles tendon appears normal. IMPRESSION: 2 or 3 fractures are present. There are definite fractures of the shaft of the 3rd metatarsal and shaft of the 4th proximal phalanx. There may be a subtle fracture of the neck of the 2nd metatarsal. Dictated by: Elliot Springer M.D. on 07/11/2024 at 8:53 Approved by: Elliot Springer M.D. on 07/11/2024 at 8:55
--- NOTE | 2024-07-11 09:27 | ED_ITS ---
HPI - Extremity Injury (Lower) General Chief Complaint: Extremity Injury, Lower Stated Complaint: Right ankle , right hand pain Time Seen by Provider: 07/11/24 09:17 History of Present Illness HPI Narrative: Patient here for complaints of right foot pain right wrist pain. Patient was on a step ladder yesterday moving things in the closet. He was on the 2nd step. Lost his balance and twisted his foot and braced his fall with his right hand. Denies any other injuries. Patient has been using a cane for ambulation. Complaints of right 4th toe pain and foot pain. Patient up-to-date with tetanus. Has abrasion to the right lateral anterior leg and bruising to the right upper arm. Patient denies hitting his head or neck chest or abdomen. Patient is on warfarin Related Data Home Medications Medication Instructions Recorded Confirmed aspirin 81 mg tablet,delayed 81 mg PO DAILY 01/20/18 03/17/21 release (Adult Low Dose Aspirin) duloxetine [Cymbalta] PO 01/20/18 03/17/21 meloxicam [Mobic] PO 01/20/18 03/17/21 omega-3 fatty acids [Fish Oil PO 01/20/18 03/17/21 Concentrate] Respironics Dreamstation CPAP #1 ea 10/25/18 03/17/21 rosuvastatin 10 mg tablet 10 mg PO DAILY 03/17/21 03/17/21 Previous Rx's Medication Instructions Recorded meclizine 25 mg tablet 25 mg PO BID-TID PRN dizziness #30 01/20/18 tabs ondansetron 4 mg disintegrating 4 mg PO Q6-8H PRN nausea and 05/23/18 tablet vomiting #30 tabs apixaban 5 mg tablet (Eliquis) 5 mg PO BID #70 tabs 09/22/21 hydrocodone 5 mg-acetaminophen 325 1 tab PO Q6H PRN pain #20 tabs 07/11/25 mg tablet Allergies Allergy/AdvReac Type Severity Reaction Status Date / Time [id number]-[id number] Reductase AdvReac Intermediate Muscle Pain Verified 07/19/22 15:45 Inhibitor Review of Systems Review of Systems Narrative: GENERAL: Negative chills, fatigue, malaise, fever, sweats. HEENT: Negative sinus pain, ear pain, sore throat RESPIRATORY: Negative dyspnea, cough CARDIOVASCULAR: Negative chest pain, palpitations GASTROINTESTINAL: Negative vomiting, nausea, abdominal pain : Negative dysuria, frequency, hematuria MUSCULOSKELETAL: Positive muscle or bony pain SKIN: Negative rash, skin lesions NEUROLOGIC: Negative weakness, numbness ROS Unobtainable: All systems reviewed & are unremarkable except as noted in HPI and below Patient History Medical History Depression Obesity (BMI 30-39.9) Hypertension Anxiety Family History Father Heart attack Exam Narrative Exam Narrative: GENERAL: in no distress, not toxic not dyspneic HEAD: Normocephalic. Atraumatic nontender face skull EYES: Pupils equal round ENT: Mucous membranes moist. NECK: Trachea midline. No midline tenderness or step-off CARDIOVASCULAR: Regular rate and rhythm RESPIRATORY: Clear to auscultation. Breath sounds equal bilaterally. No wheezes, rales, or rhonchi. GASTROINTESTINAL: Abdomen soft, non-tender EXTREMITIES: No gross deformities. Examination right upper extremity nontender shoulder elbow wrist and hand. Full active range motion without pain on the right wrist. No snuff box tenderness. Bruising to the right lateral biceps triceps area. Examination right lower extremity nontender ankle knee and hip. Able flex extend at the ankle without difficulty. There is tenderness to the right 4th toe and 3rd metatarsal bone surface dorsally as well as slightly on the right metatarsal dorsal surface area. Skin is intact. Brisk cap refills strong pedal pulse light touch intact to foot and toes. Able to wiggle toes. But does have pain when he does that. There is abrasion linear abrasion to the anterior lateral right leg. No active bleeding. BACK: No flank tenderness. NEURO: AOx4. Clear speech SKIN: Warm and dry PSYCH: Not anxious, is cooperative Initial Vital Signs Initial Vital Signs: Vital Signs Temperature 97.4 F L 07/11/24 08:16 Pulse Rate 82 07/11/24 08:16 Respiratory Rate 16 07/11/24 08:16 Blood Pressure 141/70 H 07/11/24 08:16 Pulse Oximetry 98 07/11/24 08:16 Oxygen Delivery Method Room Air 07/11/24 08:16 Procedures Orthopedic Splinting/Casting Injury #1: Time of procedure: 09:35 Side: right Lower Extremity Injury Location: foot Lower Extremity Immobilizer: posterior splint Other Orthopedic Equipment: crutches Post splinting neuro exam: intact and no change Post splinting vascular exam: no change Placed by: Provider Course Orders Ordered: ED Orders 07/11/24 08:19 XR foot RT min 3V Stat XR wrist RT min 3V Stat Vital Signs Vital signs: Vital Signs - 8 hr 07/11/24 08:16 07/11/24 09:56 Temperature 97.4 F L Pulse Rate 82 Respiratory Rate 16 16 Blood Pressure 141/70 H Pulse Oximetry 98 Oxygen Delivery Method Room Air MDM - Extremity Injury (Lower) Imaging Data Extremity x-ray #1: Radiologist's Impression: [address] [address] XRay Report Signed Patient: Rocky Emery V MR#: [id number] : 1950 Acct:[id number] Age/Sex: 73 / M Date of Service: 07/11/24 Loc: ED Accession Number: [id number] Procedure: XR wrist RT min 3V Ordering Provider: Michael Calabrese MD PROCEDURE: XR WRIST RT MIN 3V INDICATIONS: fall, wrist px, 4th toe deformity, ant foot swelling TECHNIQUE: 4 views of the wrist were acquired. COMPARISON: None. FINDINGS: Bones: No fractures or dislocations. 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 Scaphoid view rueda demonstrates no scaphoid fracture. Deformity of the 5th metacarpal is consistent with remote healed fracture. No suspicious bony lesions. Soft tissues: No suspicious soft tissue calcifications. IMPRESSION: 1. No acute bony abnormality identified. 2. 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 Dictated by: Elliot Springer M.D. on 07/11/2024 at 8:55 Approved by: Elliot Springer M.D. on 07/11/2024 at 8:57 Extremity x-ray #2: Radiologist's Impression: [address] [address] XRay Report Signed Patient: Rocky Emery V MR#: [id number] : 1950 Acct:[id number] Age/Sex: 73 / M Date of Service: 07/11/24 Loc: ED Accession Number: [id number] Procedure: XR foot RT min 3V Ordering Provider: Michael Calabrese MD PROCEDURE: XR FOOT RT MIN 3V INDICATIONS: fall, wrist px, 4th toe deformity, ant foot swelling TECHNIQUE: 3 views of the foot were acquired. COMPARISON: None. FINDINGS: Bones: Oblique mildly displaced shaft fracture of the 3rd metatarsal. Possible crack of the neck of the 2nd metatarsal. This fracture would be vertically oriented, seen on the AP view. Mildly angulated oblique fracture of the 4th proximal phalanx. No suspicious bony lesions. Soft tissues: No tibiotalar joint effusion. Achilles tendon appears normal. IMPRESSION: 2 or 3 fractures are present. There are definite fractures of the shaft of the 3rd metatarsal and shaft of the 4th proximal phalanx. There may be a subtle fracture of the neck of the 2nd metatarsal. Dictated by: Elliot Springer M.D. on 07/11/2024 at 8:53 Approved by: Elliot Springer M.D. on 07/11/2024 at 8:55 [facility] Narrative Medical decision making narrative: Patient here for complaints of right foot pain right wrist pain. Patient was on a step ladder yesterday moving things in the closet. He was on the 2nd step. Lost his balance and twisted his foot and braced his fall with his right hand. Denies any other injuries. Patient has been using a cane for ambulation. Complaints of right 4th toe pain and foot pain. Patient up-to-date with tetanus. Has abrasion to the right lateral anterior leg and bruising to the right upper arm. Patient denies hitting his head or neck chest or abdomen. Patient is on warfarin After history and exam, x-ray right foot right wrist, [facility] Medical records reviewed: No recent visit for this complaint Differential considered: Includes but not limited to foot fracture foot strain toe sprain strain fracture, wrist fracture strain sprain Imaging studies independently reviewed: X-ray right wrist no acute finding, x- ray right foot 4th toe fracture, 3rd metatarsal fracture, possible 2nd metatarsal fracture Consultations: Referral provided Re-evaluations: 9:30 a.m. reviewed results with patient. Agrees with treatment plan splinting pain medication and follow up with Orthopedics. Return precautions reviewed. Not toxic at discharge. He desires discharge home. Discussion: Appropriate for discharge home. Patient neurovascularly intact. Pain is controlled. Tolerated splinting very well. Orthopedic referral provided. He desires discharge home. Prescription for pain medication provided. Diagnosis: Wrist strain, toe fracture, foot fracture Discharge Plan Departure Patient Disposition: Home Clinical Impression: Fracture of toe of right foot Qualifiers: Encounter type: initial encounter Toe: unspecified toe Fracture type: closed Fracture alignment: displaced Qualified Code(s): S92.911A - Unspecified fracture of right toe(s), initial encounter for closed fracture Foot fracture, right Qualifiers: Encounter type: initial encounter Fracture type: closed Qualified Code(s): S92.901A - Unspecified fracture of right foot, initial encounter for closed fracture Muscle strain of right wrist Qualifiers: Encounter type: initial encounter Qualified Code(s): S66.911A - Strain of unspecified muscle, fascia and tendon at wrist and hand level, right hand, initial encounter Instructions: DI for Toe Fracture, DI for Foot Fracture, DI for Wrist Pain Activity Restrictions/Additional Instructions: No driving operating machinery until cleared by Orthopedics. Pain medication has been prescribed for you. A splint has been provided for you for your foot fracture and toe fracture. Your wrist exam and x-rays are reassuring. You likely strained your wrist. No splint is needed. Please call provided orthopedic office today for follow up in the office in a week. Please use provided crutches when ambulating/walking. Return if worse if any questions concerns. You should avoid weight-bearing on your foot and toe until office appointment time. Please elevate your foot when at rest to avoid and prevent swelling. Prescriptions: New hydrocodone-acetaminophen 5-325 mg tablet 1 tab PO Q6H PRN (Reason: pain) Qty: 20 0RF No Action ondansetron 4 mg tablet,disintegrating 4 mg PO Q6-8H PRN (Reason: nausea and vomiting) Qty: 30 4RF aspirin [Adult Low Dose Aspirin] 81 mg tablet,delayed release (DR/EC) 81 mg PO DAILY duloxetine PO meloxicam PO omega-3 fatty acids PO meclizine 25 mg tablet 25 mg PO BID-TID PRN (Reason: dizziness) Qty: 30 0RF Eliquis 5 mg tablet 5 mg PO BID Qty: 70 0RF Rx Instructions: take 2T Po BID for 7 days then 1T PO BID after (DME) Respironics Dreamstation CPAP Qty: 1 Dose Instruction: As directed Patient Comments: Pressure: 12-16 cmH2O DME: [place] Rx Instructions: As directed rosuvastatin 10 mg tablet 10 mg PO DAILY Referrals: Erika Ball MD [Physician] - Talisha Aguilera MD [Primary Care Provider] - Stand Alone Forms: Patient Portal/API/Survey
[2024-07-11 09:56] VITALS: RESP 16
== END 2024-07-11 09:57 | disposition home or self-care (01) ==
PROVIDERS: Emergency Provider Emergency Medicine; PCP Internal Medicine
DX: S92.331A Displaced fracture of third metatarsal bone, right foot, initial encounter for closed fracture (principal); S92.511A Displaced fracture of proximal phalanx of right lesser toe(s), initial encounter for closed fracture; S66.911A Strain of unspecified muscle, fascia and tendon at wrist and hand level, right hand, initial encounter; W11.XXXA Fall on and from ladder, initial encounter
CPT/HCPCS: 29515; 73110; 73630; 99282; 99283